=== PATIENT | female | born 1955 | race Caucasian/White ===

== ENCOUNTER 2020-05-22 08:42 | Inpatient (IN) | payer BC, MEDICARE ==
[2020-05-22] MEDS ORDERED: Albuterol Sulfate 2.5 mg/3 ml Neb ONE (08:49)
[2020-05-22] MEDS ORDERED: Albuterol Sulfate 2.5 mg/0.5 ml Neb ONE (08:49)
[2020-05-22] MEDS ORDERED: Ketamine 50 MG/ML (10ML VIAL) ONE (08:57)
[2020-05-22] MEDS ORDERED: Aspirin 81 mg Enteric Coated Tablet ONE (08:57)
[2020-05-22] MEDS ORDERED: Lorazepam 2 MG/ML VIAL ONE (08:57)
[2020-05-22] MEDS ORDERED: Dexamethasone 10 MG/ML VIAL ONE (08:57)
[2020-05-22] MEDS ORDERED: Magnesium 2 GM/50 ML BAG (IN WATER) ONE (08:57)
[2020-05-22 09:17] LABS: Actual Bicarbonate (HCO3v) 21 mEq/L (22-28); Analyzer IN Cardio ER; Base Excess -5.4 mEq/L (-2.0 to +3.0); Calcium, Ionized (venous) 1.21 mmol/L (1.16-1.32); Chloride (VBG) 108 mmol/L (98-106); Hemoglobin (Hb) 10.7 g/dL (11.7-16.0); Potassium (VBG) 3.93 mmol/L (3.70-5.30); Sodium 139.9 mmol/L (133-146); pH (venous) 7.28 (7.32-7.43)
[2020-05-22 09:42] LABS: #Basophils 0.1 thou/uL (0.0-0.2); #Eosinphils 0.1 thou/uL (0.0-0.7); #Lymphocytes 1.7 thou/uL (1.20-3.40); #Monocytes 0.9 thou/uL (0.11-0.59); #Neutrophils 13.2 thou/uL (1.40-6.50); %Basophils 0.4 % (0.0-1.0); %Eosinophils 0.6 % (0.0-10.0); %Lymphocytes 10.8 % (21.0-51.0); %Monocytes 5.8 % (0.0-10.0); %Neutrophils 82.4 % (42.0-75.0); Hemoglobin 9.8 g/dL (12.0-16.0); Mean Corpuscular HGB CONC 30.4 g/dL (32.0-36.0); Mean Corpuscular Hemoglobin 24.6 pg (27.0-31.0); Mean Corpuscular Volume 81.1 fL (78.0-98.0); Mean Platelet Volume 8.1 fL (7.4-10.4); Platelet Count 362 thou/uL (130-400); RBC Distribution Width 18.5 % (11.5-14.5); Red Blood Cell (RBC) Count 3.97 mill/uL (4.20-5.40)
--- NOTE | 2020-05-22 09:46 | RAD ---
Exam: Chest one view HISTORY:Dyspnea Comparison: None FINDINGS: Cardiac silhouette: Normal Aorta: Unremarkable Pulmonary vessels: Normal Costophrenic angles: Clear LUNGS: Multifocal interstitial and alveolar opacities Pneumothorax: None Osseous abnormalities: None IMPRESSION: Multifocal interstitial and alveolar opacities.
[2020-05-22 10:05] LABS: ALT (SGPT) Less than 7 U/L (8-55); AST (SGOT) 18 U/L (5-34); Albumin 2.8 g/dL (3.4-4.8); Alkaline Phosphatase 52 U/L (40-110); Anion Gap 18 mmol/L (10-20); BUN (Urea Nitrogen) 8 mg/dL (9.8-20.1); Bilirubin, Total 0.5 mg/dL (0.2-1.2); CK (CPK) 19 U/L (29-168); Calc. Creatinine Clearance 0 mL/min (70-130); Calcium 8.3 mg/dL (7.8-10.44); Carbon Dioxide 19 mmol/L (23-31); Chloride 107 mmol/L (98-107); Globulin 3.4 g/dL (2.4-3.5); Glucose 236 mg/dL (80-115); Lipase 17 U/L (8-78); Potassium 3.8 mmol/L (3.5-5.1); Protein, Total 6.2 g/dL (5.8-8.1); Sodium 140 mmol/L (136-145)
[2020-05-22 10:51] LABS: Analyzer IN Cardio ER; Base Excess (BEa) -3.3 mEq/L (-2.0 to +3.0); CO2 Tension 34.4 mmHg (35.0-45.0); Calcium, Ionized (arterial) 1.17 mmol/L (1.12-1.30); Carboxyhemoglobin (COHb) 0.2 gm% (0.0-3.0); Hemoglobin (Hb) 9.6 g/dL (12.0-16.0); O2 Tension (PaO2), arterial 116.2 mmHg (> 80.0); Puncture Site LRA
--- NOTE | 2020-05-22 10:56 | CT ---
CT ANGIOGRAM THORAX WITH IV CONTRAST AND 3-D RECONSTRUCTIONS CLINICAL INDICATION: Sudden onset of shortness of breath. History of Covid pneumonia. COMPARISON: None FINDINGS: Pulmonary arteries: No filling defects are seen within the pulmonary arteries to suggest a pulmonary embolus. Aorta: Vascular calcifications are present in the thoracic aorta as well as in the coronary arteries. The thoracic aorta is normal in caliber without evidence of an aortic dissection. Lungs: There is motion present on provided images. There are linear irregular parenchymal densities s een throughout the lungs bilaterally with scattered areas of groundglass opacity likely sequela of prior Covid pneumonia with linear densities likely related to chronic interstitial lung changes. No c onsolidation or pleural fluid is seen. Mediastinum: The heart is enlarged. No enlarged mediastinal lymph nodes are seen. Thyroid gland: Not well assessed on this exam. Osseous structures: No suspicious lytic or sclerotic osseous lesion. Chest wall: No abnormality visualized. Upper abdomen: Gallbladder is incompletely imaged, but calcifications are seen in the gallbladder lum en compatible with cholelithiasis. Small hiatal hernia is present. IMPRESSION: 1. Findings likely related to sequela of Covid pneumonia with chronic interstitial lung changes and s cattered mild groundglass densities. 2. No CT evidence for pulmonary embolus. 3. Mild cardiomegaly. 4. Cholelithiasis. 5. Small hiatal hernia.
[2020-05-22 10:59] LABS: SARS-CoV-2 NAA Rapid Test DETECTED (NotDetected)
[2020-05-22] MEDS ORDERED: Iopamidol-370 76% 500 ML 1 ML ONE (11:12)
[2020-05-22] MEDS ORDERED: Cefepime 2 GM VIAL ONE (11:12)
[2020-05-22] MEDS ORDERED: VANCOMYCIN 2 GRAM/400 ML BAG 2 GM in Premix Bag 1 BAG IVPB SCH (11:30)
--- NOTE | 2020-05-22 11:40 | PDOC.HHP ---
Hospitalist HPI Respiratory distress History of Present Illness: The patient is a 64-year-old female with past medical history of renal failure status post transplantation currently on prednisone and Prograf, diabetes mellitus, recent Covid pneumonia and pulmonary embolism. The patient was admitted to [facility] in [place] on April 09 for Covid pneumonia. She was intubated for 2 weeks and then a tracheostomy( NOT CURRENTLY ACTIVE) was placed. The patient ultimately improved and was sent to LTAC where she was managed until yesterday. After discharge, the patient did well for the first 24 hours and then became significantly short of breath last night. She presented to the ER in a state of respiratory distress requiring BiPAP. The patient is unable to provide much history at this time and most of the history was obtained from her family. Allergies/Adverse Reactions: Allergy/AdvReac Type Severity Reaction Status Date / Time hydrochlorothiazide Allergy Verified 05/22/20 11: Penicillins Allergy Verified 05/22/20 11: Past History: PMHx: As noted above PSHx: Right kidney transplant in October 2019, tracheostomy, hysterectomy FHx: Noncontributory to current presentation Social: No history of alcohol use, drug use, or smoking. She lives at home with her family. Hospitalist Exam General Appearance: awake alert, ill appearing ENT: normocephalic atraumatic Neck: supple Heart: RRR Respiratory: rhonchi, tachypneic Gastrointestinal: soft Extremities: no cyanosis, no clubbing Neurological: cranial nerve grossly intact Hospitalist Results Result Diagrams: 05/22/20 09:01 05/22/20 09:01 Lab results: Laboratory Last Values WBC 16.0 thou/uL (4.8-10.8) H 05/22/20 09: RBC 3.97 mill/uL (4.20-5.40) L 05/22/20 09: Hgb 9.8 g/dL (12.0-16.0) L 05/22/20 09: Hct 32.2 % (36.0-47.0) L 05/22/20 09: MCV 81.1 fL (78.0-98.0) 05/22/20 09: MCH 24.6 pg (27.0-31.0) L 05/22/20 09: MCHC 30.4 g/dL (32.0-36.0) L 05/22/20 09:01 RDW 18.5 % (11.5-14.5) H 05/22/20 09:01 Plt Count 362 thou/uL (130-400) 05/22/20 09:01 MPV 8.1 fL (7.4-10.4) 05/22/20 09:01 Neutrophils % 82.4 % (42.0-75.0) H 05/22/20 09:01 Lymphocytes % 10.8 % (21.0-51.0) L 05/22/20 09:01 Monocytes % 5.8 % (0.0-10.0) 05/22/20 09:01 Eosinophils % 0.6 % (0.0-10.0) 05/22/20 09:01 Basophils % 0.4 % (0.0-1.0) 05/22/20 09:01 Neutrophils # 13.2 thou/uL (1.40-6.50) H 05/22/20 09:01 Lymphocytes # 1.7 thou/uL (1.20-3.40) 05/22/20 09:01 Monocytes # 0.9 thou/uL (0.11-0.59) H 05/22/20 09:01 Eosinophils # 0.1 thou/uL (0.0-0.7) 05/22/20 09:01 Basophils # 0.1 thou/uL (0.0-0.2) 05/22/20 09:01 D-Dimer 1.70 *mcg/mL (0.27-0.43) H 05/22/20 09:01 Specimen Type ARTERIAL 05/22/20 10:45 Puncture Site LRA 05/22/20 10:45 Bicarbonate Actual 21.0 mEq/L (22-28) L 05/22/20 10:45 ABG pH 7.40 (7.35-7.45) 05/22/20 10:45 ABG pCO2 34.4 mmHg (35.0-45.0) L 05/22/20 10:45 ABG pO2 116.2 mmHg (> 80.0) H 05/22/20 10:45 ABG O2 Sat (Measured) 98.0 % (94.0-98.0) 05/22/20 10:45 ABG O2 Content 13.3 vol% (18.0-21.0) L 05/22/20 10:45 ABG Base Excess -3.3 mEq/L (-2.0 to +3.0) L 05/22/20 10:45 ABG Hematocrit 28.0 % (36.0-47.0) L 05/22/20 10:45 ABG Hemoglobin 9.6 g/dL (12.0-16.0) L 05/22/20 10:45 ABG Oxyhemoglobin 96.9 % (94.0-98.0) 05/22/20 10:45 ABG Carboxyhemoglobin 0.2 gm% (0.0-3.0) 05/22/20 10:45 ABG Methemoglobin 0.90 gm% (0.04-1.52) 05/22/20 10:45 ABG Deoxyhemoglobin 2.0 % (0.0-2.9) 05/22/20 10:45 Marquis Test Not Reportable 05/22/20 10:45 VBG pH 7.28 (7.32-7.43) L 05/22/20 09:00 VBG pCO2 45.9 mmHg (42.0-51.0) 05/22/20 09:00 VBG pO2 27.3 mmHg (35.0-45.0) L 05/22/20 09:00 VBG HCO3 21 mEq/L (22-28) L 05/22/20 09:00 VBG O2 Sat ([place]) 40.6 % (60-85) L 05/22/20 09:00 VBG Base Excess -5.4 mEq/L (-2.0 to +3.0) L 05/22/20 09:00 VBG Hematocrit 31.0 % (36.0-47.0) L 05/22/20 09:00 VBG Hemoglobin 10.7 g/dL (11.7-16.0) L 05/22/20 09:00 VBG Carboxyhemoglobin 0.1 gm% (0.5-1.5) L 05/22/20 09:00 VBG Methemoglobin 0.8 % (0-1.5) 05/22/20 09:00 VBG Ionized Calcium 1.21 mmol/L (1.16-1.32) 05/22/20 09:00 A-a O2 Gradient 54.700 mmHg (0-20) H 05/22/20 10:45 Sodium 136 mmol/L (135-148) 05/22/20 10:45 Potassium 3.50 mmol/L (3.70-5.30) L 05/22/20 10:45 Chloride 109 mmol/L (98-106) H 05/22/20 10:45 Ionized Calcium 1.17 mmol/L (1.12-1.30) 05/22/20 10:45 Mode of Support BIPAP 05/22/20 10:45 Inspired O2 30 % 05/22/20 10:45 Pressure Support 14 cmH2O 05/22/20 10:45 PEEP or CPAP 6.0 cmH2O 05/22/20 10:45 Sodium 140 mmol/L (136-145) 05/22/20 09:01 Whole Bld Sodium 139.9 mmol/L (133-146) 05/22/20 09:00 Potassium 3.8 mmol/L (3.5-5.1) 05/22/20 09:01 Whole Bld Potassium 3.93 mmol/L (3.70-5.30) 05/22/20 09:00 Chloride 107 mmol/L (98-107) 05/22/20 09:01 Whole Bld Chloride 108 mmol/L (98-106) H 05/22/20 09:00 Carbon Dioxide 19 mmol/L (23-31) L 05/22/20 09:01 Anion Gap 18 mmol/L (10-20) 05/22/20 09:01 BUN 8 mg/dL (9.8-20.1) L 05/22/20 09:01 Creatinine 0.97 mg/dL (0.6-1.1) 05/22/20 09:01 Estimated GFR (MDRD) 58 05/22/20 09:01 Glucose 236 mg/dL (80-115) H 05/22/20 09:01 Lactic Acid 4.6 mmol/L (0.5-2.2) H* 05/22/20 09:01 Calcium 8.3 mg/dL (7.8-10.44) 05/22/20 09:01 Total Bilirubin 0.5 mg/dL (0.2-1.2) 05/22/20 09:01 AST 18 U/L (5-34) 05/22/20 09:01 ALT Less than 7 U/L (8-55) L 05/22/20 09:01 Alkaline Phosphatase 52 U/L (40-110) 05/22/20 09:01 Creatine Kinase 19 U/L (29-168) L 05/22/20 09:01 CK-MB (CK-2) 1.0 ng/mL (0-6.6) 05/22/20 09:01 Troponin I 0.029 ng/mL (< 0.028) H 05/22/20 09:01 B-Natriuretic Peptide 191.9 pg/mL (0-100) H 05/22/20 09:01 Serum Total Protein 6.2 g/dL (5.8-8.1) 05/22/20 09:01 Albumin 2.8 g/dL (3.4-4.8) L 05/22/20 09:01 Globulin 3.4 g/dL (2.4-3.5) 05/22/20 09:01 Albumin/Globulin Ratio 0.8 g/dL (1.2-2.2) L 05/22/20 09:01 Lipase 17 U/L (8-78) 05/22/20 09:01 Influenza A RNA INAAT Not Detected (NotDetected) 05/22/20 10:06 Influenza B RNA INAAT Not Detected (NotDetected) 05/22/20 10:06 SARS-CoV-2 Rap RNA(RT-PCR) DETECTED (NotDetected) A* 05/22/20 10:06 Hospitalist H&P A/P (1) Acute and chronic respiratory failure Code(s): J96.20 - ACUTE AND CHR RESP FAILURE, UNSP W HYPOXIA OR HYPERCAPNIA Status: Acute Assessment and Plan: The patient is currently requiring BiPAP. We will wean her off to high flow nasal cannula as tolerated. (2) COVID-19 Code(s): U07.1 - COVID-19 Status: Acute Assessment and Plan: History of COVID-19 infection in early April. The patient is likely no longer infectious and no isolation will be implemented. Her respiratory with hypoxia likely a sequelae of lung scarring due to history of severe COVID-19 infection. Dose changes were noted in her CT scan of the chest today. I have discussed her case with pulmonology. (3) Sepsis Code(s): A41.9 - SEPSIS, UNSPECIFIED ORGANISM Status: Acute Assessment and Plan: Possibility of superimposed bacterial infection is not ruled out. Broad-spectrum antibiotics have been initiated. The patient received fluid bolus in the ER. Follow blood culture results. Check procalcitonin and inflammatory markers. (4) History of renal transplant Status: Acute Assessment and Plan: Continue Prograf and prednisone. Nephrology consulted. (5) History of pulmonary embolism Code(s): Z86.711 - PERSONAL HISTORY OF PULMONARY EMBOLISM Status: Acute Assessment and Plan: Continue her home Eliquis. (6) DM2 (diabetes mellitus, type 2) Status: Acute Assessment and Plan: Insulin sliding scale. (7) Cardiomegaly Code(s): I51.7 - CARDIOMEGALY Status: Acute Assessment and Plan: There is mild cardiomegaly on chest x-ray. BNP is slightly elevated but could be much higher given the false-negative results in obese patients. Check echocardiogram. Start Lasix 20 mg IV twice daily. Plan: The ER contacted the patient's transplant center for transfer. They stated that the patient is stable to stay here. Her transplant doctor will be available over the phone for assistance. His name is Dr. Santos and phone number .
[2020-05-22 12:59] LABS: Lactic Acid 2.2 mmol/L (0.5-2.2)
--- NOTE | 2020-05-22 15:13 | CON ---
DATE OF CONSULTATION: 05/22/2020 HISTORY OF PRESENT ILLNESS: This is a 64-year-old female, who was admitted to [facility] around April 03 with COVID-19 pneumonia. Her and her both became ill at the same time. The patient proceeded to develop acute respiratory failure and was on mechanical ventilation for 2 weeks before she underwent tracheostomy. She was weaned from the ventilator within 5 days of that and spent another several days in the hospital there before being transferred to [facility] in [place]. There, she was decannulated. She underwent rehab. She was only able to ambulate about 180 steps at the time of discharge. Although she felt okay to go home, she was never walked to assess her potential for oxygen desaturation. Therefore, she went home with no oxygen. PAST MEDICAL HISTORY: 1. She recently underwent orthotopic kidney transplantation. This has been complicated by nephrolithiasis in the donated kidney. She eventually had to have transplantation of her [place] ureter to this kidney and has been doing well since that time. 2. Chronic secondary to transplant. PAST SURGICAL HISTORY: Tracheostomy, hysterectomy, and kidney transplant. SOCIAL HISTORY: Nonsmoker. Does not consume alcohol. Does not use illicit drugs. ALLERGIES: PENICILLIN AND HYDROCHLOROTHIAZIDE. REVIEW OF SYSTEMS: Remarkable for dry cough, chills. No fever, nausea, vomiting, hematemesis, melena, hematochezia, hematuria, or dysuria. PHYSICAL EXAMINATION: VITAL SIGNS: O2 saturations running around 100% on BiPAP at 30% FiO2. I subsequently took her off the BiPAP, put on 2 L, and she was saturating 99%. Her pulse is running in the 80s, blood pressure 170/60. GENERAL: She is awake, alert. She has some mild dyspnea at rest, but is able to speak without difficulty. HEENT: Unremarkable. NECK: She has an old tracheostomy site, which is almost closed except for a pinhole air movement. LUNGS: She has some inspiratory crackles bilaterally. CARDIOVASCULAR: S1 and S2, regular without murmur. ABDOMEN: Obese, soft, nontender, and nondistended. EXTREMITIES: No clubbing or cyanosis, but she has generalized mild edema throughout. LABORATORY DATA: White blood cell count 16, hematocrit 32.2, and platelet count 362, sedimentation rate 27. D-dimer 1.7. PH 7.4, pCO2 of 34, pO2 of 116 on the BiPAP with FiO2 of 30%. Lactate is at 4.6. Sodium 140, potassium 3.8, chloride 107, CO2 of 19, BUN 8, creatinine 0.8, glucose 236, AST 18, ALT less than 7. BNP 191. Procalcitonin 0.1. I reviewed her CT, she has chronic interstitial changes in the periphery bilaterally. ASSESSMENT: Ms. Jewell presents with hypoxemia and respiratory distress after being sent home yesterday from an LTAC. She has recent COVID pneumonia with a very stormy course and has residual changes on her CT scan indicative of fibrotic component after COVID pneumonia. If I had my guess, I would say that she probably desaturates with severe exercise, but was probably never able to perform robust enough exercise to desaturate to the extent where she will qualify for home oxygen. However, I am not confident that testing was performed. I do not think that she has active COVID pneumonia at this time. I do not think that she is contagious from this standpoint. Given the fact that she is immunocompromised, she could have developed some type of secondary infection, although this is not reflected in her procalcitonin or sedimentation rate. That being said, I am not confident that the procalcitonin or sedimentation rate would have that much value in the patient who is immunocompromised who she was taking steroids. RECOMMENDATIONS: 1. The patient should have a phone call placed to [facility] in [place] to see if they would be willing to take her back. Most transplant centers want to be involved in every aspect of the patient's care in the first 2 years after transplantation. 2. If she has to stay here, then I would monitor for a few days. I will keep her on antibiotics until cultures have had a chance to result. I would not necessarily go up on any of her steroid dose. She does have a history of pulmonary embolism while in the hospital, but nothing currently on CT scan, so I would keep her on her current Eliquis dose. If she has to stay here, I would consult Nephrology to make sure that she is on appropriate anti-rejection medication. 3. If she does stay here, then I would try to perform exercise O2 sats to see if she will qualify for home oxygen. If she did not qualify, then I would probably try to find some way to send her home on oxygen temporarily. Thank you for the consultation. Job ID: [id number]
[2020-05-22 16:01] LABS: Troponin I 0.038 ng/mL (< 0.028)
[2020-05-22 16:02] LABS: Bilirubin Negative (Negative); Blood, Urine Negative (Negative); Glucose, Urine (Dipstick) 100 mg/dL (Negative); Ketone, Urine Negative (Negative); Leukocyte Negative (Negative); Nitrite Negative (Negative); Protein, Urine (Dipstick) Negative (Neg-Trace); Specific Gravity, Urine 1.015 (1.005-1.030); Urobilinogen 0.2 mg/dL (Less than 2); pH, Urine 6.5 (5.0-9.0)
[2020-05-22 16:03] LABS: Clarity Cloudy (Clear)
[2020-05-22 19:21] VITALS: BMI 34.8
[2020-05-22] MEDS: Apixaban 5 MG TAB PO SCH (20:22)
[2020-05-22] MEDS: Tacrolimus 1 MG CAP PO SCH (20:22)
[2020-05-22] MEDS: Furosemide 20 MG/2 ML VIAL SLOW IVP SCH (20:24)
[2020-05-22] MEDS: Vancomycin 1 GM in Premix Bag 1 BAG IVPB SCH (20:25)
[2020-05-22] MEDS: Cefepime 1 GM in Sodium Chloride 0.9% 100 ML IVPB SCH (22:38)
[2020-05-23] MEDS: Tacrolimus 1 MG CAP PO SCH ×2 (08:41→21:24)
[2020-05-23] MEDS: Apixaban 5 MG TAB PO SCH ×2 (08:41→21:30)
[2020-05-23] MEDS: predniSONE 20 MG TAB PO SCH (08:41)
[2020-05-23] MEDS: Amlodipine 10 MG TAB PO SCH ×2 (08:41→09:28)
[2020-05-23] MEDS: Vancomycin 1 GM in Premix Bag 1 BAG IVPB SCH ×2 (08:42→21:23)
[2020-05-23] MEDS: Furosemide 20 MG/2 ML VIAL SLOW IVP SCH (08:42)
[2020-05-23] MEDS ORDERED: Prevnar 13-Val Conj/PF 0.5 ML SYRINGE IM ONE (09:00)
[2020-05-23 09:39] LABS: White Blood Cell (WBC) Count 17.3 thou/uL (4.8-10.8)
[2020-05-23 09:53] LABS: Albumin 2.9 g/dL (3.4-4.8); Anion Gap 13 mmol/L (10-20); BUN (Urea Nitrogen) 13 mg/dL (9.8-20.1); BUN/Creatinine Ratio 14.44; Calc. Creatinine Clearance 89 mL/min (70-130); Calcium 8.5 mg/dL (7.8-10.44); Carbon Dioxide 22 mmol/L (23-31); Chloride 109 mmol/L (98-107); Glucose 151 mg/dL (80-115); Magnesium 1.5 mg/dL (1.6-2.6); Phosphorus 3.8 mg/dL (2.3-4.7); Potassium 4.4 mmol/L (3.5-5.1); Sodium 140 mmol/L (136-145)
[2020-05-23] MEDS ORDERED: Magnesium 2 GM/50 ML 2 GM in Premix Bag 1 BAG IVPB SCH (10:00)
--- NOTE | 2020-05-23 11:17 | CON ---
DATE OF CONSULTATION: 05/23/2020 SERVICE: Nephrology. REASON FOR CONSULTATION: Renal transplant management. REQUESTING PHYSICIAN: Dr. Asuncion Smith. HISTORY OF PRESENT ILLNESS: A 64-year-old female with known history of end- stage renal disease, status post living donor renal transplant in 2019, being managed by Dr Samantha Alegre at [facility], admitted due to acute onset of respiratory distress and hypoxia. The patient reportedly was diagnosed and treated for COVID pneumonia between March and April, requiring intubation and was subsequently transferred to [facility] after tracheostomy and PEG tube placement. The patient improved and tracheostomy was decannulated and she was subsequently discharged on May 21, on room air. She only stayed at home for one day, but developed worsening shortness of breath, hence was brought in by EMS. There was no associated fever, chills, rigor, or dysuria. The patient however reported nasal congestion. She also denied leg swelling or cough or abdominal pain. On presentation, the patient was in respiratory distress requiring non- rebreather oxygen supplementation with some improvement. She is currently on nasal cannula oxygen supplementation. For her immunosuppression, the patient is on Prograf 2 mg b.i.d. and prednisone. She also is on Bactrim for PCP prophylaxis. She was also started on broad-spectrum antibiotics with vancomycin and Zosyn. Review of patient's portal revealed that the patient had a creatinine of 0.91 on May 10, on same day, she also had a Prograf level of 4.4. She denied use of NSAID or nephrotoxic agent. PAST MEDICAL HISTORY: 1. End-stage renal disease, status post renal transplant. 2. PE on anticoagulation 3. Nephrolithiasis of transplnted kidney PAST SURGICAL HISTORY: 1. Tracheostomy. 2. Hysterectomy. 3. Kidney transplant. FAMILY HISTORY: Reviewed, but noncontributory. SOCIAL HISTORY: Nonsmoker. Denied alcohol or recreational drug use. ALLERGIES: REPORTED ALLERGIC AND ADVERSE REACTION TO PENICILLIN AND HYDROCHLOROTHIAZIDE. MEDICATIONS: Prior to hospital, medications are as follows; 1. Eliquis 5 mg p.o. b.i.d. 2. Prednisone 10 mg p.o. daily. 3. Tacrolimus 2 mg p.o. b.i.d. 4. Protonix 40 mg p.o. daily. 5. Bactrim single-strength one tablet p.o. b.i.d. 6. Tradjenta 5 mg p.o. daily. Current hospital medications are as follows; 1. Cefepime 1 g b.i.d. 2. Vancomycin 1 g b.i.d. 3. Amlodipine 10 mg p.o. daily. 4. Eliquis 5 mg p.o. b.i.d. 5. Lasix 20 mg IV b.i.d. 6. Prednisone 10 mg p.o. daily. 7. Prograf 2 mg p.o. b.i.d. REVIEW OF SYSTEMS: Twelve-point review of system performed was negative other than pertinent positives and negatives included in the history of present illness. PHYSICAL EXAMINATION: VITAL SIGNS: Temperature 97.9, pulse 97, respiratory rate 20, SpO2 100 on 3 L nasal cannula, blood pressure is 137/79. GENERAL: Anxious, obese female, in no obvious distress. Afebrile. Anicteric. Acyanotic. HEENT: Normocephalic, atraumatic. Oral mucosa is moist. NECK: Supple with no JVD. CARDIOVASCULAR: Regular rhythm and rate with normal heart sounds 1 and 2. RESPIRATORY: Fair air entry bilaterally with few transmitted breath sounds. No rhonchi or use of accessory muscles was appreciated. GASTROINTESTINAL: Abdomen is obese. Scars of prior surgery noted. Right lower quadrant transplanted kidney noted with no tenderness. EXTREMITIES: Grossly normal looking atraumatic with no edema or erythema. SKIN: Normal skin turgor. No rash or ecchymosis appreciated. INFORMATION SERVICES CONSULTANT: Conscious and alert, oriented x3 with appropriate mental status. Cranial nerves II through XII are grossly intact. The patient moves all extremities. PSYCHIATRIC: The patient seems anxious with some fine tremor. DIAGNOSTIC DATA: CBC on presentation yesterday showed WBC count of 16.0, hemoglobin of 9.8, MCV of 81, platelets of 362. CBC today is still pending. Chemistry earlier today showed sodium 140, potassium 4.4, chloride 109, CO2 22, BUN 13, creatinine 0.9, glucose 151, calcium 8.5, phosphorus 3.8, magnesium 1.5, albumin 2.9. On presentation yesterday, sodium was 140, potassium 3.8, chloride 107, CO2 19, BUN 8, creatinine 0.97, albumin 2.8. Urinalysis on presentation showed yellow cloudy urine with pH of 6.5, specific gravity of 1.015, urine protein positive, negative ketone, blood, nitrite, bilirubin, and leukocyte esterase. Microscopy was not done. COVID PCR was positive. CT angio of the chest showed findings related to sequelae of COVID pneumonia with chronic interstitial lung changes and scattered mild ground-glass densities. No CT evidence of pulmonary embolus noted. Mild cardiomegaly and cholelithiasis also were noted. Echocardiogram performed on presentation showed preserved systolic function with EF of 55-60, mild concentric left ventricular hypertrophy and E/A flow reversal suggestive of diastolic dysfunction also were noted. ASSESSMENT: 1. Acute respiratory failure with hypoxia: Most likely due to physical deconditioning, superimposed on sequelae of COVID. New COVID infection/reinfection is a concern. Normal procalcitonin makes bacterial infection unlikely. Some congestion may be contributory, though the patient appeared clinically dry. She is clinically improved and is on nasal cannula. One wonders if the patient should have been on oxygen on discharge. 2. Status post renal transplant. Renal function is stable with creatinine of 0.9, which is at her baseline. The patient had creatinine of 0.91 on May 10. Immunosuppression with Prograf and prednisone. No change in prednisone and there is no medication that could alter or interrupt with current and immunosuppressants. 3. Elevated blood pressure. On presentation, blood pressures were in 110s, but creeped up to 150s. The patient is not a known hypertensive. 4. Diabetes on Tradjenta. 5. COVID infection/pneumonia with possible reinfection given positive COVID PCR. 6. Hypomagnesemia PLAN: 1. We will continue current immunosuppressive therapy with Prograf and prednisone. We will also continue Bactrim for PCP prophylaxis. 2. We will discontinue amlodipine for now as blood pressure is fairly acceptable. We will also discontinue Lasix at this point as the patient is euvolemic if not dry. We defer antibiotic therapy to the primary, attending and cinnamon grinder. We will monitor renal function closely. We will plan to get FK level at some point. We will also replete serum magnesium with 2 grms of magnesium sulphate 3. If the patient remained stable, it will be appropriate to consider home oxygen. Otherwise, transfer to [facility], will be prudent. We will continue to follow patient at this point. I will get in contact with Dr. Codey and update her on the patient. I understand the patient was given the option of transfer yesterday, but she preferred to stay here to stay closer to the family. Job ID: [id number] [id number]
[2020-05-23] MEDS: Cefepime 1 GM in Sodium Chloride 0.9% 100 ML IVPB SCH ×2 (11:20→22:56)
[2020-05-23 11:28] LABS: Hemoglobin 8.6 g/dL (12.0-16.0); Mean Corpuscular HGB CONC 30.8 g/dL (32.0-36.0); Mean Corpuscular Hemoglobin 24.7 pg (27.0-31.0); Mean Corpuscular Volume 80.2 fL (78.0-98.0); Mean Platelet Volume 8.4 fL (7.4-10.4); Platelet Count 320 thou/uL (130-400); Red Blood Cell (RBC) Count 3.47 mill/uL (4.20-5.40)
--- NOTE | 2020-05-23 11:28 | PDOC.HOSPP ---
- Subjective Encounter Date: 05/23/20 (f/u acute resp failure) Encounter Time: 11:26 Subjective: Pt was admitted yesterday with acute resp failure with hypoxia. She has a hx of complicated covid infection that required tracheostomy, now decanulated, and rehab. She was recently discharged and returned to the hospital with acute shortness of breath. Pt reports her breathing is better today - she notes improvement compared to yesterday. She states she did not require oxygen at rehab or afterwards. She denies any cp/sob/n/v/abd pain. She is concerned about her medications - reports she takes protonix at 1600 daily. She has nasal congestion and therefore difficulty breathing through her nose. - Objective Vital Signs & Weight: Vital Signs (12 hours) Temp Pulse Resp BP Pulse Ox 05/23/20 08:00 97.9 F 94 18 146/84 H 100 05/23/20 06:00 97 20 137/79 100 05/23/20 04:04 93 L 05/23/20 03:52 97.5 F L 98 22 H 155/90 H 100 05/23/20 02:00 93 148/76 H 100 05/23/20 00:00 98.1 F 97 22 H 131/71 98 Weight Weight 193 lb 8 oz I&O: 05/22/20 05/23/20 05/24/20 06:59 06:59 06:59 Intake Total 237 Balance 237 Result Diagrams: 05/23/20 09:09 05/23/20 09:09 EKG Reviewed by me: Yes (tele - sinus 90-100's, 8 beats pAT) Hospitalist ROS - Medication Medications: Active Medications Generic Name Dose Route Start Last Admin Trade Name Freq PRN Reason Stop Dose Admin Apixaban 5 mg 05/22/20 21:00 05/23/20 08:41 Apixaban 5 Mg Tab PO 5 mg BID REYNALDO Administration Cefepime HCl 1 gm/ Sodium 100 mls @ 200 mls/hr 05/22/20 23:00 05/23/20 11:20 Chloride IVPB 100 mls 1100,2300 REYNALDO Administration Vancomycin HCl 1 gm/ Device 200 mls @ 200 mls/hr 05/22/20 21:00 05/23/20 08:42 IVPB 200 mls Q12HR REYNALDO Administration Magnesium Sulfate 2 gm/ Device 50 mls @ 50 mls/hr 05/23/20 10:00 05/23/20 11:21 IVPB 05/23/20 14:00 50 mls NOW REYNALDO Administration Prednisone 10 mg 05/23/20 08:00 05/23/20 08:41 Prednisone 20 Mg Tab PO 10 mg QAM-WM REYNALDO Administration Sodium Chloride 10 ml 05/22/20 21:00 05/23/20 11:22 Flush - Normal Saline 10 Ml Syringe IVF 10 ml Q12HR REYNALDO Administration Tacrolimus 2 mg 05/22/20 21:00 05/23/20 08:41 Tacrolimus 1 Mg Cap PO 2 mg BID REYNALDO Administration Hospitalist Exam Vitals: Vital Signs (12 hours) Temp Pulse Resp BP Pulse Ox 05/23/20 08:00 97.9 F 94 18 146/84 H 100 05/23/20 06:00 97 20 137/79 100 05/23/20 04:04 93 L 05/23/20 03:52 97.5 F L 98 22 H 155/90 H 100 05/23/20 02:00 93 148/76 H 100 05/23/20 00:00 98.1 F 97 22 H 131/71 98 Weight Weight 193 lb 8 oz General Appearance: NAD Heart: RRR, no murmur Respiratory: no wheezes, no rales, no ronchi Respiratory - other findings: fair air movement throughout Gastrointestinal: soft, non-tender, non-distended, normal bowel sounds Extremities: no cyanosis, no clubbing, no edema Psychiatric: normal affect Psychiatric - other findings: tearful in conversation about wanting to be home Hosp A/P (1) Acute and chronic respiratory failure Code(s): J96.20 - ACUTE AND CHR RESP FAILURE, UNSP W HYPOXIA OR HYPERCAPNIA Status: Acute Qualifiers: Respiratory failure complication: hypoxia Qualified Code(s): J96.21 - Acute and chronic respiratory failure with hypoxia (2) COVID-19 Code(s): U07.1 - COVID-19 Status: Chronic (3) History of renal transplant Status: Acute (4) Hypomagnesemia Code(s): E83.42 - HYPOMAGNESEMIA Status: Acute (5) Hypoalbuminemia Code(s): E88.09 - OTH DISORDERS OF PLASMA-PROTEIN METABOLISM, NEC Status: Acute (6) DM2 (diabetes mellitus, type 2) Status: Acute - Plan Acute resp failure with hx of complicated covid infection and lung changes c/w sequelae of covid infection - appreciate Pulm recs - continue Cefepime and Vanc for now - follow cultures - case management consult in anticipation that pt may need home oxygen and may be ready for d/c tomorrow Hx of renal transplant - continue current meds - hold bactrim for now given broad spectrum abx Nasal congestion - oxymetolazone bid x 6 doses - start flonase GERD - protonix with home dosing hx of c diff - start florastor DM - continue home tradjenta - this hospital substitutes alogliptin dvt prophy - eliquis gi prophy - home protonix code status full reviewed plan of care with patient/nurse, no questions or further needs at end of eval Addendum 20:05- contacted by RN earlier this afternoon for positive blood culture - MRSE. Will consult ID in the morning given the immunosuppression meds with transplant.
[2020-05-23 11:31] LABS: Anisocytosis SLIGHT = 6-15 cells (100X) (0-5/hpf); Band 1 % (5-11); Hypochromia SLIGHT = 6-15 cells (100X) (0-5/hpf); MDiff Complete? YES; Monocytes 4 % (0-10); Neutrophil 95 % (42-75); Platelet Morphology Comment Appears Adequate; Polychromasia SLIGHT = 2-3 cells (100X) (0-2/hpf); Vacuoles SLIGHT
[2020-05-23] MEDS ORDERED: Fluticasone Propionate Nasal Spray 16 gm Bottle NASAL SCH (12:00)
[2020-05-23] MEDS ORDERED: Oxymetazoline HCl 0.05% (30 ML BOT) NS SCH (12:00)
[2020-05-23] MEDS ORDERED: Dextrose 50% Abboject 50 ML SYRINGE SLOW IVP PRN (13:58)
[2020-05-23] MEDS ORDERED: HumaLOG 300 UNITS/3 ML VIAL SC PRN ×2 (13:58)
[2020-05-23] MEDS ORDERED: Dextrose 5% in Water 1,000 ML IV PRN (13:58)
--- NOTE | 2020-05-23 15:56 | PRG ---
DATE OF SERVICE: 05/23/2020 SUBJECTIVE: The patient is in much better spirits today. She had no acute complaints. She is breathing much better with the oxygen. OBJECTIVE: VITAL SIGNS: Her temperature is 98.0, pulse 107, respirations 23, O2 saturations 98% on 3 L, blood pressure 132/82. GENERAL: She is awake and alert, in no distress. HEENT: Unremarkable. NECK: No adenopathy or JVD. CHEST: Clear. CARDIAC: S1, S2. Regular. ABDOMEN: Soft. EXTREMITIES: No edema. LABORATORY DATA: White count 17, hematocrit 27.9, and platelet count 320. Sodium 140, potassium 4.4, chloride 109, CO2 of 22, BUN 13, creatinine 0.9, glucose 151. Her culture, she has grown out gram-positive cocci from a culture obtained from her newly inserted central line. Of note, she did have PICC line discontinued about two days before that. ASSESSMENT: 1. Possible line sepsis. 2. Status post COVID-19 pneumonia with residual findings on CT scan, which are not unexpected. PLAN: I would think she needs to be set up for home oxygen. She needs to continue current antibiotics until we have the sensitivities at the identified bacteria. If this is a true infection, then I would consult with ID in terms of duration of treatment since she is a transplant patient. Job ID: [id number]
[2020-05-23] MEDS: Oxymetazoline HCl 0.05% (30 ML BOT) NS SCH (21:25)
[2020-05-23] MEDS: Fluticasone Propionate Nasal Spray 16 gm Bottle NASAL SCH (21:26)
[2020-05-24 05:08] LABS: #Lymphocytes 0.9 thou/uL (1.20-3.40); #Monocytes 0.9 thou/uL (0.11-0.59); #Neutrophils 10.6 thou/uL (1.40-6.50); %Basophils 0.2 % (0.0-1.0); %Eosinophils 0.1 % (0.0-10.0); %Lymphocytes 6.9 % (21.0-51.0); %Monocytes 7.2 % (0.0-10.0); %Neutrophils 85.6 % (42.0-75.0); Hemoglobin 8.4 g/dL (12.0-16.0); Mean Corpuscular HGB CONC 30.3 g/dL (32.0-36.0); Mean Corpuscular Hemoglobin 24.3 pg (27.0-31.0); Mean Corpuscular Volume 80.3 fL (78.0-98.0); Mean Platelet Volume 8.7 fL (7.4-10.4); Platelet Count 262 thou/uL (130-400); RBC Distribution Width 18.9 % (11.5-14.5); Red Blood Cell (RBC) Count 3.44 mill/uL (4.20-5.40); White Blood Cell (WBC) Count 12.4 thou/uL (4.8-10.8)
[2020-05-24 05:33] LABS: Anion Gap 12 mmol/L (10-20); BUN (Urea Nitrogen) 15 mg/dL (9.8-20.1); Calc. Creatinine Clearance 80 mL/min (70-130); Calcium 8.6 mg/dL (7.8-10.44); Carbon Dioxide 21 mmol/L (23-31); Chloride 108 mmol/L (98-107); Glucose 113 mg/dL (80-115); Magnesium 1.8 mg/dL (1.6-2.6); Potassium 3.9 mmol/L (3.5-5.1); Sodium 137 mmol/L (136-145)
[2020-05-24] MEDS ORDERED: Albuterol Sulfate 2.5 mg/3 ml Neb NEB PRN (07:41)
--- NOTE | 2020-05-24 07:44 | PDOC.HOSPP ---
- Subjective Encounter Date: 05/24/20 (f/u acute resp failure) Encounter Time: 07:42 Subjective: Pt c/o an episode yesterday where she couldn't breathe. States it was all of a sudden when she was talking with someone, it felt like no air was moving. The person she was speaking with increased the oxygen and the pt reports the sx resolved. She denies this during hospitalization with covid or rehab. Yesterday - one blood culture is positive with MRSE. - Objective Vital Signs & Weight: Vital Signs (12 hours) Temp Pulse Resp BP Pulse Ox 05/24/20 04:16 98 05/24/20 03:00 98.3 F 97 16 135/70 98 05/23/20 23:49 98.0 F 92 16 115/78 98 05/23/20 21:21 98.9 F 92 20 131/73 97 05/23/20 20:00 98 Weight Weight 193 lb 8 oz I&O: 05/23/20 05/24/20 05/25/20 06:59 06:59 06:59 Intake Total 237 1700 Output Total 1300 Balance 237 400 Result Diagrams: 05/24/20 04:47 05/24/20 04:47 EKG Reviewed by me: Yes (tele - sinus 80's) Hospitalist ROS - Medication Medications: Active Medications Generic Name Dose Route Start Last Admin Trade Name Freq PRN Reason Stop Dose Admin Apixaban 5 mg 05/22/20 21:00 05/23/20 21:30 Apixaban 5 Mg Tab PO 5 mg BID REYNALDO Administration Fluticasone Propionate 0 gm 05/23/20 21:00 05/23/20 21:26 Fluticasone Propionate Nasal [employer] 16 Gm Bottle NASAL 2 spr BID REYNALDO Administration Cefepime HCl 1 gm/ Sodium 100 mls @ 200 mls/hr 05/22/20 23:00 05/23/20 22:56 Chloride IVPB 100 mls 1100,2300 REYNALDO Administration Vancomycin HCl 1 gm/ Device 200 mls @ 200 mls/hr 05/22/20 21:00 05/23/20 21:23 IVPB 200 mls Q12HR REYNALDO Administration Oxymetazoline HCl 1 ml 05/23/20 21:00 05/23/20 21:25 Oxymetazoline Hcl 0.05% (30 Ml Bot) NS 05/25/20 21:01 1 ml BID REYNALDO Administration Pantoprazole Sodium 40 mg 05/23/20 16:00 05/23/20 16:05 Pantoprazole 40 Mg Tab PO 40 mg 1600 REYNALDO Administration Prednisone 10 mg 05/23/20 08:00 05/23/20 08:41 Prednisone 20 Mg Tab PO 10 mg QAM-WM REYNALDO Administration Sodium Chloride 10 ml 05/22/20 21:00 05/23/20 21:25 Flush - Normal Saline 10 Ml Syringe IVF 10 ml Q12HR REYNALDO Administration Tacrolimus 2 mg 05/22/20 21:00 05/23/20 21:24 Tacrolimus 1 Mg Cap PO 2 mg BID REYNALDO Administration Hospitalist Exam Vitals: Vital Signs (12 hours) Temp Pulse Resp BP Pulse Ox 05/24/20 04:16 98 05/24/20 03:00 98.3 F 97 16 135/70 98 05/23/20 23:49 98.0 F 92 16 115/78 98 05/23/20 21:21 98.9 F 92 20 131/73 97 05/23/20 20:00 98 Weight Weight 193 lb 8 oz General Appearance: NAD Heart: RRR, no murmur Respiratory: CTAB, no wheezes, no rales, no ronchi Respiratory - other findings: good air movement Gastrointestinal: soft, non-tender, non-distended, normal bowel sounds Extremities: no cyanosis, no clubbing, no edema Psychiatric: normal affect Hosp A/P (1) Bacteremia Code(s): R78.81 - BACTEREMIA Status: Suspected (2) Acute and chronic respiratory failure Code(s): J96.20 - ACUTE AND CHR RESP FAILURE, UNSP W HYPOXIA OR HYPERCAPNIA Status: Acute Qualifiers: Respiratory failure complication: hypoxia Qualified Code(s): J96.21 - Acute and chronic respiratory failure with hypoxia (3) COVID-19 Code(s): U07.1 - COVID-19 Status: Chronic (4) History of renal transplant Status: Acute (5) Hypomagnesemia Code(s): E83.42 - HYPOMAGNESEMIA Status: Acute (6) Hypoalbuminemia Code(s): E88.09 - OTH DISORDERS OF PLASMA-PROTEIN METABOLISM, NEC Status: Acute (7) DM2 (diabetes mellitus, type 2) Status: Acute - Plan Positive blood culture - concern for bacteremia in this patient on immunosuppression and acute decompensation - ID consult - continue both cefepime and Vanc for now Acute shortness of breath - uncertain etiology - may be related to bronchospasm vs vocal cord spasm. Will monitor and order prn nebs Acute resp failure with hx of complicated covid infection and lung changes c/w sequelae of covid infection - appreciate Pulm recs - continue Cefepime and Vanc for now - follow cultures - will need desat study prior to discharge Hx of renal transplant - continue current meds - bactrim per ID and Nephrology Nasal congestion - improved - oxymetolazone bi x 6 doses - if needed - nasal saline prn - start flonase GERD - protonix with home dosing hx of c diff - continue florastor DM - continue home tradjenta - this hospital substitutes alogliptin - pt has declined finger stick glucose dvt prophy - eliquis gi prophy - home protonix code status full reviewed plan of care with patient/nurse, no questions or further needs at end of eval
[2020-05-24] MEDS: predniSONE 20 MG TAB PO SCH (09:30)
[2020-05-24] MEDS: Fluticasone Propionate Nasal Spray 16 gm Bottle NASAL SCH ×2 (09:31→10:18)
[2020-05-24] MEDS: Apixaban 5 MG TAB PO SCH ×2 (09:31→21:40)
[2020-05-24] MEDS: Magnesium Oxide 400 MG TAB PO SCH (09:32)
[2020-05-24] MEDS: Sodium Chloride 0.65% Nasal 44 ML BOT EA NARE PRN (09:32)
[2020-05-24] MEDS: Vancomycin 1 GM in Premix Bag 1 BAG IVPB SCH (09:32)
[2020-05-24] MEDS: Tacrolimus 1 MG CAP PO SCH ×2 (09:33→21:40)
[2020-05-24] MEDS: Saccharomyces boulardii 250 MG CAP PO SCH (09:33)
[2020-05-24] MEDS: Alogliptin 25 MG TAB PO SCH (09:38)
[2020-05-24] MEDS: Oxymetazoline HCl 0.05% (30 ML BOT) NS SCH ×2 (09:38→10:17)
[2020-05-24] MEDS: Cefepime 1 GM in Sodium Chloride 0.9% 100 ML IVPB SCH ×2 (11:08→21:40)
--- NOTE | 2020-05-24 14:35 | PRG ---
DATE OF SERVICE: 05/24/2020 SUBJECTIVE: The patient is doing quite well. Has no complaints. OBJECTIVE: VITAL SIGNS: Temperature 98.1, pulse 91, respirations 20, O2 saturation 99% on 3 L, blood pressure 133/80. HEENT: Unremarkable. NECK: No adenopathy or JVD. LUNGS: Clear. CARDIAC: S1 and S2. Regular. ABDOMEN: Soft. EXTREMITIES: No edema. LABORATORY DATA: White blood cell count 12, hematocrit 27.6, and platelet count 262. Sodium 137, potassium 3.9, BUN 15, creatinine 1.0, glucose 113. Her line cultures, Coag-negative staph from her line. ASSESSMENT: 1. Possible line sepsis. 2. COVID-19 pneumonia with residual fibrotic findings. PLAN: I think she needs oxygen at home whether she qualifies for or not. This would give her the opportunity to have something at home in case she got in the respiratory distress. I agree with all other measures. Job ID: [id number]
--- NOTE | 2020-05-24 16:32 | PDOC.NEPPN ---
- Subjective Encounter Date: 05/24/20 Subjective: Seen and examined. Had an episode of respiratory distress last night which improved with increase in oxygen supplementation. Remained afebrile. - Objective Vital Signs & Weight: Vital Signs (12 hours) Temp Pulse Resp BP Pulse Ox 05/24/20 15:40 98.3 F 88 20 149/88 H 97 05/24/20 11:54 98.1 F 91 20 133/80 99 05/24/20 08:00 98.2 F 83 16 134/86 100 Weight Weight 193 lb 8 oz I&O: 05/23/20 05/24/20 05/25/20 06:59 06:59 06:59 Intake Total 237 1700 450 Output Total 1300 Balance 237 400 450 Result Diagrams: 05/24/20 04:47 05/24/20 04:47 Nephrology ROS - Medication Medications: Active Medications Generic Name Dose Route Start Last Admin Trade Name Freq PRN Reason Stop Dose Admin Alogliptin Benzoate 25 mg 05/24/20 09:00 05/24/20 09:38 Alogliptin 25 Mg Tab PO 25 mg DAILY REYNALDO Administration Apixaban 5 mg 05/22/20 21:00 05/24/20 09:31 Apixaban 5 Mg Tab PO 5 mg BID REYNALDO Administration Fluticasone Propionate 0 gm 05/23/20 21:00 05/24/20 10:18 Fluticasone Propionate Nasal [place] 16 Gm Bottle NASAL Not Given BID REYNALDO Cefepime HCl 1 gm/ Sodium 100 mls @ 200 mls/hr 05/22/20 23:00 05/24/20 11:08 Chloride IVPB 100 mls 1100,2300 REYNALDO Administration Vancomycin HCl 1 gm/ Device 200 mls @ 200 mls/hr 05/22/20 21:00 05/24/20 09:32 IVPB 200 mls Q12HR REYNALDO Administration Magnesium Oxide 400 mg 05/24/20 09:00 05/24/20 09:32 Magnesium Oxide 400 Mg Tab PO 400 mg DAILY REYNALDO Administration Oxymetazoline HCl 1 ml 05/23/20 21:00 05/24/20 10:17 Oxymetazoline Hcl 0.05% (30 Ml Bot) NS 05/25/20 21:01 Not Given BID REYNALDO Pantoprazole Sodium 40 mg 05/23/20 16:00 05/24/20 15:50 Pantoprazole 40 Mg Tab PO 40 mg 1600 REYNALDO Administration Prednisone 10 mg 05/23/20 08:00 05/24/20 09:30 Prednisone 20 Mg Tab PO 10 mg QAM-WM REYNALDO Administration Saccharomyces Boulardii 250 mg 05/24/20 09:00 05/24/20 09:33 Saccharomyces Boulardii 250 Mg Cap PO 250 mg DAILY REYNALDO Administration Sodium Chloride 10 ml 05/22/20 21:00 05/24/20 09:33 Flush - Normal Saline 10 Ml Syringe IVF 10 ml Q12HR REYNALDO Administration Sodium Chloride 1 ml 05/24/20 07:41 05/24/20 09:32 Sodium Chloride 0.65% Nasal 44 Ml Bot EA NARE 1 sprays TID PRN Administration Nasal Congestion Tacrolimus 2 mg 05/22/20 21:00 05/24/20 09:33 Tacrolimus 1 Mg Cap PO 2 mg BID REYNALDO Administration - Exam General Appearance: awake alert General - other findings: anxious Eye: anicteric sclera ENT: normocephalic atraumatic, moist mucosa Neck: supple, symmetric, no JVD Neck - other findings: anterior neck bandaid at site of prior tracheostomy Respiratory: no wheezes, no rales, no ronchi, normal chest expansion, no tachypnea Cardiovascular: RRR Gastrointestinal: soft, non-tender, non-distended, normal bowel sounds Extremities: no edema Neurological: CN's grossly intact, no focal deficits PSYCH: normal affect, A&O x 3 Psychiatric - other findings: anxious Nephrology Results - Labs Result Diagrams: 05/24/20 04:47 05/24/20 04:47 Lab results: WBC 12.4 thou/uL (4.8-10.8) H 05/24/20 04:47 Hgb 8.4 g/dL (12.0-16.0) L 05/24/20 04:47 Hct 27.6 % (36.0-47.0) L 05/24/20 04:47 MCV 80.3 fL (78.0-98.0) 05/24/20 04:47 Plt Count 262 thou/uL (130-400) 05/24/20 04:47 Neutrophils % 85.6 % (42.0-75.0) H 05/24/20 04:47 Band Neuts % (Manual) 1 % (5-11) L 05/23/20 09:09 ESR Westergren 27 mm/hr (Less than 30) 05/22/20 11:38 ABG pH 7.40 (7.35-7.45) 05/22/20 10:45 ABG pCO2 34.4 mmHg (35.0-45.0) L 05/22/20 10:45 ABG pO2 116.2 mmHg (> 80.0) H 05/22/20 10:45 VBG pH 7.28 (7.32-7.43) L 05/22/20 09:00 VBG pCO2 45.9 mmHg (42.0-51.0) 05/22/20 09:00 VBG pO2 27.3 mmHg (35.0-45.0) L 05/22/20 09:00 Sodium 137 mmol/L (136-145) 05/24/20 04:47 Potassium 3.9 mmol/L (3.5-5.1) 05/24/20 04:47 Chloride 108 mmol/L (98-107) H 05/24/20 04:47 Carbon Dioxide 21 mmol/L (23-31) L 05/24/20 04:47 BUN 15 mg/dL (9.8-20.1) 05/24/20 04:47 Creatinine 1.00 mg/dL (0.6-1.1) 05/24/20 04:47 Glucose 113 mg/dL (80-115) 05/24/20 04:47 Lactic Acid 2.2 mmol/L (0.5-2.2) 05/22/20 12:24 Calcium 8.6 mg/dL (7.8-10.44) 05/24/20 04:47 Total Bilirubin 0.5 mg/dL (0.2-1.2) 05/22/20 09:01 AST 18 U/L (5-34) 05/22/20 09:01 ALT Less than 7 U/L (8-55) L 05/22/20 09:01 Alkaline Phosphatase 52 U/L (40-110) 05/22/20 09:01 Creatine Kinase 19 U/L (29-168) L 05/22/20 09:01 CK-MB (CK-2) 1.0 ng/mL (0-6.6) 05/22/20 09:01 Troponin I 0.038 ng/mL (< 0.028) H 05/22/20 15:30 C-Reactive Protein 0.58 mg/dL (= or < 0.5) H 05/22/20 11:38 B-Natriuretic Peptide 191.9 pg/mL (0-100) H 05/22/20 09:01 Serum Total Protein 6.2 g/dL (5.8-8.1) 05/22/20 09:01 Albumin 2.9 g/dL (3.4-4.8) L 05/23/20 09:09 Lipase 17 U/L (8-78) 05/22/20 09:01 Urine Ketones Negative mg/dL (Negative) 05/22/20 15:38 Urine Blood Negative (Negative) 05/22/20 15:38 Urine Nitrite Negative (Negative) 05/22/20 15:38 Ur Leukocyte Esterase Negative (Negative) 05/22/20 15:38 Sodium 137 mmol/L (136-145) 05/24/20 04:47 Potassium 3.9 mmol/L (3.5-5.1) 05/24/20 04:47 Chloride 108 mmol/L (98-107) H 05/24/20 04:47 Carbon Dioxide 21 mmol/L (23-31) L 05/24/20 04:47 Anion Gap 12 mmol/L (10-20) 05/24/20 04:47 BUN 15 mg/dL (9.8-20.1) 05/24/20 04:47 Creatinine 1.00 mg/dL (0.6-1.1) 05/24/20 04:47 Glucose 113 mg/dL (80-115) 05/24/20 04:47 Calcium 8.6 mg/dL (7.8-10.44) 05/24/20 04:47 Phosphorus 3.8 mg/dL (2.3-4.7) 05/23/20 09:09 Magnesium 1.8 mg/dL (1.6-2.6) 05/24/20 04:47 Albumin 2.9 g/dL (3.4-4.8) L 05/23/20 09:09 Nephrology AP PN - Plan ASSESSMENT: Acute respiratory failure with hypoxia: Etiology is unclear. Improved with oxygen supplementation. ? acute infectious patholy or reactive airway disease Status post renal transplant. Renal function is stable. Creat today is 1.0 during this hospitalization Possible covid reinfection. Patient was treated at [facility] between Mar 2020 and apr 2020 and did have a negative covid test. She tested positive Diabetes on Tradjenta. Recent COVID infection/pneumonia with acute respiratory failure Hypomagnesemia Positive blood culture with 1/2 bottles growing Coag negative stap. Most likely contaminant. PLAN Start oral magnesium supplementation Continue ISN with pred and prograf. Continue other treatments. Follow renal function.
[2020-05-24 20:46] LABS: Vancomycin, Trough 33.4 ug/mL
[2020-05-25] MEDS: Fluticasone Propionate Nasal Spray 16 gm Bottle NASAL SCH ×3 (02:16→20:13)
[2020-05-25] MEDS: Oxymetazoline HCl 0.05% (30 ML BOT) NS SCH ×3 (02:17→20:12)
[2020-05-25] MEDS: Vancomycin 1 GM in Premix Bag 1 BAG IVPB SCH (02:18)
[2020-05-25 05:27] LABS: #Eosinphils 0.1 thou/uL (0.0-0.7); #Lymphocytes 0.9 thou/uL (1.20-3.40); #Monocytes 0.7 thou/uL (0.11-0.59); #Neutrophils 5.7 thou/uL (1.40-6.50); %Basophils 0.6 % (0.0-1.0); %Eosinophils 0.8 % (0.0-10.0); %Lymphocytes 11.9 % (21.0-51.0); %Monocytes 9.3 % (0.0-10.0); %Neutrophils 77.4 % (42.0-75.0); Hemoglobin 7.9 g/dL (12.0-16.0); Mean Corpuscular HGB CONC 30.9 g/dL (32.0-36.0); Mean Corpuscular Hemoglobin 24.6 pg (27.0-31.0); Mean Corpuscular Volume 79.5 fL (78.0-98.0); Mean Platelet Volume 9.2 fL (7.4-10.4); Platelet Count 226 thou/uL (130-400); RBC Distribution Width 18.8 % (11.5-14.5); Red Blood Cell (RBC) Count 3.21 mill/uL (4.20-5.40); White Blood Cell (WBC) Count 7.3 thou/uL (4.8-10.8)
[2020-05-25 05:47] LABS: Anion Gap 9 mmol/L (10-20); BUN (Urea Nitrogen) 13 mg/dL (9.8-20.1); Calc. Creatinine Clearance 111 mL/min (70-130); Calcium 8.4 mg/dL (7.8-10.44); Carbon Dioxide 24 mmol/L (23-31); Chloride 110 mmol/L (98-107); Glucose 101 mg/dL (80-115); Sodium 139 mmol/L (136-145)
[2020-05-25 07:07] LABS: Iron 14 ug/dL (50-170); Iron Binding Capacity, Total 229 mcg/dL (265-497)
[2020-05-25] MEDS: predniSONE 20 MG TAB PO SCH (08:42)
[2020-05-25] MEDS: Magnesium Oxide 400 MG TAB PO SCH (08:45)
[2020-05-25] MEDS: Apixaban 5 MG TAB PO SCH ×2 (08:45→20:12)
[2020-05-25] MEDS: Saccharomyces boulardii 250 MG CAP PO SCH (08:45)
[2020-05-25] MEDS: Tacrolimus 1 MG CAP PO SCH ×2 (08:45→20:12)
--- NOTE | 2020-05-25 09:02 | PDOC.HOSPP ---
- Subjective Encounter Date: 05/25/20 Encounter Time: 09:05 Subjective: alert, comfortable on O2 - Objective Vital Signs & Weight: Vital Signs (12 hours) Temp Pulse Resp BP Pulse Ox 05/25/20 05:12 93 L 05/25/20 04:00 98.5 F 67 16 118/83 97 05/25/20 02:02 98 05/25/20 00:00 97.1 F L 76 14 144/73 H 98 Weight Weight 193 lb 8 oz I&O: 05/24/20 05/25/20 05/26/20 06:59 06:59 06:59 Intake Total 1700 800 Output Total 1300 Balance 400 800 Result Diagrams: 05/25/20 04:49 05/25/20 04:49 Hospitalist ROS - Medication Medications: Active Medications Generic Name Dose Route Start Last Admin Trade Name Freq PRN Reason Stop Dose Admin Albuterol Sulfate 2.5 mg 05/24/20 07:41 05/25/20 05:12 Albuterol Sulfate 2.5 Mg/3 Ml Neb NEB 2.5 mg [id number] PRN Administration Wheezing Alogliptin Benzoate 25 mg 05/24/20 09:00 05/24/20 09:38 Alogliptin 25 Mg Tab PO 25 mg DAILY REYNALDO Administration Apixaban 5 mg 05/22/20 21:00 05/24/20 21:40 Apixaban 5 Mg Tab PO 5 mg BID REYNALDO Administration Fluticasone Propionate 0 gm 05/23/20 21:00 05/25/20 02:16 Fluticasone Propionate Nasal [place] 16 Gm Bottle NASAL Not Given BID REYNALDO Cefepime HCl 1 gm/ Sodium 100 mls @ 200 mls/hr 05/22/20 23:00 05/24/20 21:40 Chloride IVPB 100 mls 1100,2300 REYNALDO Administration Magnesium Oxide 400 mg 05/24/20 09:00 05/24/20 09:32 Magnesium Oxide 400 Mg Tab PO 400 mg DAILY REYNALDO Administration Oxymetazoline HCl 1 ml 05/23/20 21:00 05/25/20 02:17 Oxymetazoline Hcl 0.05% (30 Ml Bot) NS 05/25/20 21:01 Not Given BID REYNALDO Pantoprazole Sodium 40 mg 05/23/20 16:00 05/24/20 15:50 Pantoprazole 40 Mg Tab PO 40 mg 1600 REYNALDO Administration Prednisone 10 mg 05/23/20 08:00 05/24/20 09:30 Prednisone 20 Mg Tab PO 10 mg QAM-WM REYNALDO Administration Saccharomyces Boulardii 250 mg 05/24/20 09:00 05/24/20 09:33 Saccharomyces Boulardii 250 Mg Cap PO 250 mg DAILY REYNALDO Administration Sodium Chloride 10 ml 05/22/20 21:00 05/24/20 21:00 Flush - Normal Saline 10 Ml Syringe IVF 10 ml Q12HR REYNALDO Administration Sodium Chloride 1 ml 05/24/20 07:41 05/24/20 09:32 Sodium Chloride 0.65% Nasal 44 Ml Bot EA NARE 1 sprays TID PRN Administration Nasal Congestion Tacrolimus 2 mg 05/22/20 21:00 05/24/20 21:40 Tacrolimus 1 Mg Cap PO 2 mg BID REYNALDO Administration Hospitalist Exam Vitals: Vital Signs (12 hours) Temp Pulse Resp BP Pulse Ox 05/25/20 05:12 93 L 05/25/20 04:00 98.5 F 67 16 118/83 97 05/25/20 02:02 98 05/25/20 00:00 97.1 F L 76 14 144/73 H 98 Weight Weight 193 lb 8 oz General Appearance: awake alert Neck: no JVD Heart: RRR, no murmur Respiratory: CTAB Gastrointestinal: soft, normal bowel sounds Extremities: no edema Hosp A/P (1) Bacteremia associated with intravascular line Code(s): T82.7XXA - INFECT/INFLM REACT D/T OTH CARDI/VASC DEV/IMPLNT/GRFT, INIT; R78.81 - BACTEREMIA Status: Acute Qualifiers: Encounter type: initial encounter Qualified Code(s): T82.7XXA - Infection and inflammatory reaction due to other cardiac and vascular devices, implants and grafts, initial encounter; R78.81 - Bacteremia (2) Acute and chronic respiratory failure Code(s): J96.20 - ACUTE AND CHR RESP FAILURE, UNSP W HYPOXIA OR HYPERCAPNIA Status: Acute Qualifiers: Respiratory failure complication: hypoxia Qualified Code(s): J96.21 - Acute and chronic respiratory failure with hypoxia (3) DM2 (diabetes mellitus, type 2) Status: Chronic Qualifiers: Diabetes mellitus intermediate accountant insulin use: without intermediate accountant use Diabetes mellitus complication status: without complication Qualified Code(s): E11.9 - Type 2 diabetes mellitus without complications (4) History of pulmonary embolism Code(s): Z86.711 - PERSONAL HISTORY OF PULMONARY EMBOLISM Status: Chronic (5) History of renal transplant Status: Chronic (6) COVID-19 Code(s): U07.1 - COVID-19 Status: Chronic - Plan bacteremia: line culture, Staph, immune compromised. Cont vancomycicin, await ID consult COVID: cont O2 Support Post renal transplant: comt anti-rejection meds
[2020-05-25] MEDS: Sodium Chloride 0.65% Nasal 44 ML BOT EA NARE PRN (09:09)
--- NOTE | 2020-05-25 09:14 | PRG ---
DATE OF SERVICE: 05/25/2020 SUBJECTIVE: The patient is doing reasonably well. PHYSICAL EXAMINATION: VITAL SINGS: O2 sats 93%. Temperature 98.5, pulse rate 67, respirations are 18, blood pressure 118/83. HEENT: Unremarkable. NECK: No adenopathy or JVD. CHEST: Fairly clear. CARDIAC: S1 and S2, regular. ABDOMEN: Soft. EXTREMITIES: No edema. LABORATORY DATA: White blood cell count 7.3, hematocrit 25.5, and platelet count 226. Sodium 139, potassium 4, chloride 110, CO2 of 24, BUN 13, creatinine 0.7, glucose 82. ASSESSMENT: 1. Hypoxemia related to the recent COVID pneumonia. 2. [id number]. 3. History of renal transplant. PLAN: 1. She will likely need IV antibiotics at the time of discharge. 2. She also needs home oxygen for an indefinite period. Job ID: [id number]
--- NOTE | 2020-05-25 10:20 | PDOC.NEPPN ---
- Subjective Encounter Date: 05/25/20 Subjective: seen. No new problem. Remained afebrile. - Objective Vital Signs & Weight: Vital Signs (12 hours) Temp Pulse Resp BP Pulse Ox 05/25/20 09:00 98.0 F 93 20 152/67 H 100 05/25/20 05:12 93 L 05/25/20 04:00 98.5 F 67 16 118/83 97 05/25/20 02:02 98 05/25/20 00:00 97.1 F L 76 14 144/73 H 98 Weight Weight 193 lb 8 oz I&O: 05/24/20 05/25/20 05/26/20 06:59 06:59 06:59 Intake Total 1700 800 250 Output Total 1300 Balance 400 800 250 Result Diagrams: 05/25/20 04:49 05/25/20 04:49 Nephrology ROS - Medication Medications: Active Medications Generic Name Dose Route Start Last Admin Trade Name Freq PRN Reason Stop Dose Admin Albuterol Sulfate 2.5 mg 05/24/20 07:41 05/25/20 05:12 Albuterol Sulfate 2.5 Mg/3 Ml Neb NEB 2.5 mg [id number] PRN Administration Wheezing Alogliptin Benzoate 25 mg 05/24/20 09:00 05/24/20 09:38 Alogliptin 25 Mg Tab PO 25 mg DAILY REYNALDO Administration Apixaban 5 mg 05/22/20 21:00 05/25/20 08:45 Apixaban 5 Mg Tab PO 5 mg BID REYNALDO Administration Fluticasone Propionate 0 gm 05/23/20 21:00 05/25/20 08:45 Fluticasone Propionate Nasal Hansen 16 Gm Bottle NASAL Not Given BID REYNALDO Cefepime HCl 1 gm/ Sodium 100 mls @ 200 mls/hr 05/22/20 23:00 05/24/20 21:40 Chloride IVPB 100 mls 1100,2300 REYNALDO Administration Magnesium Oxide 400 mg 05/24/20 09:00 05/25/20 08:45 Magnesium Oxide 400 Mg Tab PO 400 mg DAILY REYNALDO Administration Oxymetazoline HCl 1 ml 05/23/20 21:00 05/25/20 08:46 Oxymetazoline Hcl 0.05% (30 Ml Bot) NS 05/25/20 21:01 Not Given BID REYNALDO Pantoprazole Sodium 40 mg 05/23/20 16:00 05/24/20 15:50 Pantoprazole 40 Mg Tab PO 40 mg 1600 REYNALDO Administration Prednisone 10 mg 05/23/20 08:00 05/25/20 08:42 Prednisone 20 Mg Tab PO 10 mg QAM-WM REYNALDO Administration Saccharomyces Boulardii 250 mg 05/24/20 09:00 05/25/20 08:45 Saccharomyces Boulardii 250 Mg Cap PO 250 mg DAILY REYNALDO Administration Sodium Chloride 10 ml 05/22/20 21:00 05/25/20 08:46 Flush - Normal Saline 10 Ml Syringe IVF 10 ml Q12HR REYNALDO Administration Sodium Chloride 1 ml 05/24/20 07:41 05/25/20 09:09 Sodium Chloride 0.65% Nasal 44 Ml Bot EA NARE 1 sprays TID PRN Administration Nasal Congestion Tacrolimus 2 mg 05/22/20 21:00 05/25/20 08:45 Tacrolimus 1 Mg Cap PO 2 mg BID REYNALDO Administration - Exam General Appearance: awake alert Eye: anicteric sclera ENT: normocephalic atraumatic, moist mucosa Neck: supple, symmetric Respiratory - other findings: fair air entry with some transmitted sound Cardiovascular: RRR Gastrointestinal: soft, non-tender, non-distended, normal bowel sounds Extremities: no cyanosis, no edema Neurological: CN's grossly intact PSYCH: A&O x 3 Nephrology Results - Labs Result Diagrams: 05/25/20 04:49 05/25/20 04:49 Lab results: WBC 7.3 thou/uL (4.8-10.8) 05/25/20 04:49 Hgb 7.9 g/dL (12.0-16.0) L 05/25/20 04:49 Hct 25.5 % (36.0-47.0) L 05/25/20 04:49 MCV 79.5 fL (78.0-98.0) 05/25/20 04:49 Plt Count 226 thou/uL (130-400) 05/25/20 04:49 Neutrophils % 77.4 % (42.0-75.0) H 05/25/20 04:49 Band Neuts % (Manual) 1 % (5-11) L 05/23/20 09:09 ESR Westergren 27 mm/hr (Less than 30) 05/22/20 11:38 ABG pH 7.40 (7.35-7.45) 05/22/20 10:45 ABG pCO2 34.4 mmHg (35.0-45.0) L 05/22/20 10:45 ABG pO2 116.2 mmHg (> 80.0) H 05/22/20 10:45 VBG pH 7.28 (7.32-7.43) L 05/22/20 09:00 VBG pCO2 45.9 mmHg (42.0-51.0) 05/22/20 09:00 VBG pO2 27.3 mmHg (35.0-45.0) L 05/22/20 09:00 Sodium 139 mmol/L (136-145) 05/25/20 04:49 Potassium 4.0 mmol/L (3.5-5.1) 05/25/20 04:49 Chloride 110 mmol/L (98-107) H 05/25/20 04:49 Carbon Dioxide 24 mmol/L (23-31) 05/25/20 04:49 BUN 13 mg/dL (9.8-20.1) 05/25/20 04:49 Creatinine 0.72 mg/dL (0.6-1.1) 05/25/20 04:49 Glucose 101 mg/dL (80-115) 05/25/20 04:49 Lactic Acid 2.2 mmol/L (0.5-2.2) 05/22/20 12:24 Calcium 8.4 mg/dL (7.8-10.44) 05/25/20 04:49 Total Bilirubin 0.5 mg/dL (0.2-1.2) 05/22/20 09:01 AST 18 U/L (5-34) 05/22/20 09:01 ALT Less than 7 U/L (8-55) L 05/22/20 09:01 Alkaline Phosphatase 52 U/L (40-110) 05/22/20 09:01 Creatine Kinase 19 U/L (29-168) L 05/22/20 09:01 CK-MB (CK-2) 1.0 ng/mL (0-6.6) 05/22/20 09:01 Troponin I 0.038 ng/mL (< 0.028) H 05/22/20 15:30 C-Reactive Protein 0.58 mg/dL (= or < 0.5) H 05/22/20 11:38 B-Natriuretic Peptide 191.9 pg/mL (0-100) H 05/22/20 09:01 Serum Total Protein 6.2 g/dL (5.8-8.1) 05/22/20 09:01 Albumin 2.9 g/dL (3.4-4.8) L 05/23/20 09:09 Lipase 17 U/L (8-78) 05/22/20 09:01 Urine Ketones Negative mg/dL (Negative) 05/22/20 15:38 Urine Blood Negative (Negative) 05/22/20 15:38 Urine Nitrite Negative (Negative) 05/22/20 15:38 Ur Leukocyte Esterase Negative (Negative) 05/22/20 15:38 Sodium 139 mmol/L (136-145) 05/25/20 04:49 Potassium 4.0 mmol/L (3.5-5.1) 05/25/20 04:49 Chloride 110 mmol/L (98-107) H 05/25/20 04:49 Carbon Dioxide 24 mmol/L (23-31) 05/25/20 04:49 Anion Gap 9 mmol/L (10-20) L 05/25/20 04:49 BUN 13 mg/dL (9.8-20.1) 05/25/20 04:49 Creatinine 0.72 mg/dL (0.6-1.1) 05/25/20 04:49 Glucose 101 mg/dL (80-115) 05/25/20 04:49 Calcium 8.4 mg/dL (7.8-10.44) 05/25/20 04:49 Phosphorus 3.8 mg/dL (2.3-4.7) 05/23/20 09:09 Magnesium 1.8 mg/dL (1.6-2.6) 05/24/20 04:47 Albumin 2.9 g/dL (3.4-4.8) L 05/23/20 09:09 Nephrology AP PN - Plan ASSESSMENT: Acute respiratory failure with hypoxia: Etiology is unclear. Improved with oxygen supplementation. ? acute infectious patholy or reactive airway disease Status post renal transplant. Renal function remained stable. Possible covid reinfection. Patient was treated at [facility] between Mar 2020 and apr 2020 and did have a negative covid test. She tested positive Diabetes on Tradjenta. Recent COVID infection/pneumonia with acute respiratory failure Hypomagnesemia Positive blood culture with 1/2 bottles growing Coag negative staph. Anemia: Iron deficiency +/- Chronic illness/CKD. PLAN Start IV iron therapy Continue ISN with pred and prograf. Continue other treatments. Follow renal function.
[2020-05-25] MEDS: Cefepime 1 GM in Sodium Chloride 0.9% 100 ML IVPB SCH ×2 (10:21→22:28)
[2020-05-25] MEDS: Alogliptin 25 MG TAB PO SCH (10:21)
[2020-05-25] MEDS ORDERED: Iron, Sodium Ferric Gluconate 250 MG in Sodium Chloride 0.9% 100 ML IVPB SCH (10:30)
[2020-05-25 20:28] LABS: Vancomycin, Random 17.8 ug/mL (See Comment)
[2020-05-25] MEDS ORDERED: Vancomycin 1 GM in Premix Bag 1 BAG IVPB SCH (21:00)
[2020-05-25] MEDS: Vancomycin HCl 500 MG in Sodium Chloride 0.9% 100 ML IVPB SCH (21:37)
[2020-05-26] MEDS: predniSONE 20 MG TAB PO SCH (07:52)
[2020-05-26] MEDS: Apixaban 5 MG TAB PO SCH ×2 (07:53→20:54)
[2020-05-26] MEDS: Saccharomyces boulardii 250 MG CAP PO SCH (07:53)
[2020-05-26] MEDS: Magnesium Oxide 400 MG TAB PO SCH (07:53)
[2020-05-26] MEDS: Fluticasone Propionate Nasal Spray 16 gm Bottle NASAL SCH (07:53)
[2020-05-26] MEDS: Tacrolimus 1 MG CAP PO SCH ×2 (07:54→20:54)
[2020-05-26] MEDS: Vancomycin HCl 500 MG in Sodium Chloride 0.9% 100 ML IVPB SCH ×2 (08:19→22:52)
[2020-05-26] MEDS: Alogliptin 25 MG TAB PO SCH (08:19)
[2020-05-26 08:34] LABS: Anion Gap 11 mmol/L (10-20); BUN (Urea Nitrogen) 9 mg/dL (9.8-20.1); Calc. Creatinine Clearance 104 mL/min (70-130); Calcium 8.8 mg/dL (7.8-10.44); Carbon Dioxide 24 mmol/L (23-31); Chloride 109 mmol/L (98-107); Glucose 114 mg/dL (80-115); Potassium 3.8 mmol/L (3.5-5.1); Sodium 140 mmol/L (136-145)
[2020-05-26] MEDS ORDERED: Iron, Sodium Ferric Gluconate 250 MG in Sodium Chloride 0.9% 100 ML IVPB SCH (09:45)
--- NOTE | 2020-05-26 09:49 | PRG ---
DATE OF SERVICE: 05/26/2020 SUBJECTIVE: The patient is doing reasonably well. OBJECTIVE: VITAL SIGNS: Temperature 98.1, pulse 70, respirations 18, O2 saturation 94% on 3 L, and blood pressure 139/95. HEENT: Unremarkable. NECK: No adenopathy or JVD. LUNGS: Clear. CARDIAC: S1 and S2 regular. ABDOMEN: Soft. LABORATORY DATA: Sodium 140, potassium 3.8, chloride 109, CO2 of 24, BUN 9, creatinine 0.7, glucose 114. ASSESSMENT: 1. Status post COVID-19 pneumonia. 2. Status post trach. 3. Hypoxemia. 4. Line sepsis. PLAN: The patient will be sent home on oxygen when she is ready to go home from an infectious disease standpoint. Job ID: [id number]
[2020-05-26] MEDS: Cefepime 1 GM in Sodium Chloride 0.9% 100 ML IVPB SCH ×2 (10:03→23:38)
--- NOTE | 2020-05-26 10:38 | PDOC.HOSPP ---
- Subjective Encounter Date: 05/26/20 Encounter Time: 10:37 Subjective: I"M ready to go home" - Objective Vital Signs & Weight: Vital Signs (12 hours) Temp Pulse Resp BP Pulse Ox 05/26/20 08:00 94 L 05/26/20 07:40 98.1 F 70 18 139/95 H 94 L 05/26/20 03:38 98.3 F 83 18 164/93 H 96 05/26/20 00:07 98.2 F 77 20 156/83 H 100 Weight Weight 193 lb 8 oz I&O: 05/25/20 05/26/20 05/27/20 06:59 06:59 06:59 Intake Total 800 1100 200 Balance 800 1100 200 Result Diagrams: 05/25/20 04:49 05/26/20 08:05 Hospitalist ROS - Medication Medications: Active Medications Generic Name Dose Route Start Last Admin Trade Name Freq PRN Reason Stop Dose Admin Albuterol Sulfate 2.5 mg 05/24/20 07:41 05/25/20 05:12 Albuterol Sulfate 2.5 Mg/3 Ml Neb NEB 2.5 mg [id number] PRN Administration Wheezing Alogliptin Benzoate 25 mg 05/24/20 09:00 05/26/20 08:19 Alogliptin 25 Mg Tab PO 25 mg DAILY REYNALDO Administration Apixaban 5 mg 05/22/20 21:00 05/26/20 07:53 Apixaban 5 Mg Tab PO 5 mg BID REYNALDO Administration Fluticasone Propionate 0 gm 05/23/20 21:00 05/26/20 07:53 Fluticasone Propionate Nasal Blain 16 Gm Bottle NASAL Not Given BID REYNALDO Cefepime HCl 1 gm/ Sodium 100 mls @ 200 mls/hr 05/22/20 23:00 05/26/20 10:03 Chloride IVPB 100 mls 1100,2300 REYNALDO Administration Vancomycin HCl 500 mg/ Sodium 100 mls @ 100 mls/hr 05/25/20 21:00 05/26/20 08:19 Chloride IVPB 100 mls 0900,2100 REYNALDO Administration Magnesium Oxide 400 mg 05/24/20 09:00 05/26/20 07:53 Magnesium Oxide 400 Mg Tab PO 400 mg DAILY REYNALDO Administration Pantoprazole Sodium 40 mg 05/23/20 16:00 05/25/20 15:55 Pantoprazole 40 Mg Tab PO 40 mg 1600 REYNALDO Administration Prednisone 10 mg 05/23/20 08:00 05/26/20 07:52 Prednisone 20 Mg Tab PO 10 mg QAM-WM REYNALDO Administration Saccharomyces Boulardii 250 mg 05/24/20 09:00 05/26/20 07:53 Saccharomyces Boulardii 250 Mg Cap PO 250 mg DAILY REYNALDO Administration Sodium Chloride 10 ml 05/22/20 21:00 05/26/20 07:54 Flush - Normal Saline 10 Ml Syringe IVF 10 ml Q12HR REYNALDO Administration Sodium Chloride 1 ml 05/24/20 07:41 05/25/20 09:09 Sodium Chloride 0.65% Nasal 44 Ml Bot EA NARE 1 sprays TID PRN Administration Nasal Congestion Tacrolimus 2 mg 05/22/20 21:00 05/26/20 07:54 Tacrolimus 1 Mg Cap PO 2 mg BID REYNALDO Administration Hospitalist Exam Vitals: Vital Signs (12 hours) Temp Pulse Resp BP Pulse Ox 05/26/20 08:00 94 L 05/26/20 07:40 98.1 F 70 18 139/95 H 94 L 05/26/20 03:38 98.3 F 83 18 164/93 H 96 05/26/20 00:07 98.2 F 77 20 156/83 H 100 Weight Weight 193 lb 8 oz General Appearance: awake alert Neck: no JVD Heart: RRR, no murmur Respiratory: CTAB Gastrointestinal: soft, normal bowel sounds Extremities: no edema Hosp A/P (1) Bacteremia associated with intravascular line Code(s): T82.7XXA - INFECT/INFLM REACT D/T OTH CARDI/VASC DEV/IMPLNT/GRFT, INIT; R78.81 - BACTEREMIA Status: Acute Qualifiers: Encounter type: initial encounter Qualified Code(s): T82.7XXA - Infection and inflammatory reaction due to other cardiac and vascular devices, implants and grafts, initial encounter; R78.81 - Bacteremia (2) Acute and chronic respiratory failure Code(s): J96.20 - ACUTE AND CHR RESP FAILURE, UNSP W HYPOXIA OR HYPERCAPNIA Status: Acute Qualifiers: Respiratory failure complication: hypoxia Qualified Code(s): J96.21 - Acute and chronic respiratory failure with hypoxia (3) DM2 (diabetes mellitus, type 2) Status: Chronic 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 Cont vancomycicin, COVID: cont O2 Support Post renal transplant: cont anti-rejection meds ID to see about pos blood cultue
--- NOTE | 2020-05-26 11:50 | PDOC.NEPPN ---
- Subjective Encounter Date: 05/26/20 Subjective: No new problem. Still requiring oxygen supplementation. Remained afebrile. - Objective Vital Signs & Weight: Vital Signs (12 hours) Temp Pulse Resp BP Pulse Ox 05/26/20 08:00 94 L 05/26/20 07:40 98.1 F 70 18 139/95 H 94 L 05/26/20 03:38 98.3 F 83 18 164/93 H 96 05/26/20 00:07 98.2 F 77 20 156/83 H 100 Weight Weight 193 lb 8 oz I&O: 05/25/20 05/26/20 05/27/20 06:59 06:59 06:59 Intake Total 800 1100 200 Balance 800 1100 200 Result Diagrams: 05/25/20 04:49 05/26/20 08:05 Nephrology ROS - Medication Medications: Active Medications Generic Name Dose Route Start Last Admin Trade Name Freq PRN Reason Stop Dose Admin Albuterol Sulfate 2.5 mg 05/24/20 07:41 05/25/20 05:12 Albuterol Sulfate 2.5 Mg/3 Ml Neb NEB 2.5 mg [id number] PRN Administration Wheezing Alogliptin Benzoate 25 mg 05/24/20 09:00 05/26/20 08:19 Alogliptin 25 Mg Tab PO 25 mg DAILY REYNALDO Administration Apixaban 5 mg 05/22/20 21:00 05/26/20 07:53 Apixaban 5 Mg Tab PO 5 mg BID REYNALDO Administration Fluticasone Propionate 0 gm 05/23/20 21:00 05/26/20 07:53 Fluticasone Propionate Nasal [place]iska 16 Gm Bottle NASAL Not Given BID REYNALDO Cefepime HCl 1 gm/ Sodium 100 mls @ 200 mls/hr 05/22/20 23:00 05/26/20 10:03 Chloride IVPB 100 mls 1100,2300 REYNALDO Administration Vancomycin HCl 500 mg/ Sodium 100 mls @ 100 mls/hr 05/25/20 21:00 05/26/20 08:19 Chloride IVPB 100 mls 0900,2100 REYNALDO Administration Ferric Sodium Gluconate 120 mls @ 60 mls/hr 05/26/20 09:45 05/26/20 11:20 Complex 250 mg/ Sodium IVPB 05/26/20 16:00 120 mls Chloride NOW REYNALDO Administration Magnesium Oxide 400 mg 05/24/20 09:00 05/26/20 07:53 Magnesium Oxide 400 Mg Tab PO 400 mg DAILY REYNALDO Administration Pantoprazole Sodium 40 mg 05/23/20 16:00 05/25/20 15:55 Pantoprazole 40 Mg Tab PO 40 mg 1600 REYNALDO Administration Prednisone 10 mg 05/23/20 08:00 05/26/20 07:52 Prednisone 20 Mg Tab PO 10 mg QAM-WM REYNALDO Administration Saccharomyces Boulardii 250 mg 05/24/20 09:00 05/26/20 07:53 Saccharomyces Boulardii 250 Mg Cap PO 250 mg DAILY REYNALDO Administration Sodium Chloride 10 ml 05/22/20 21:00 05/26/20 07:54 Flush - Normal Saline 10 Ml Syringe IVF 10 ml Q12HR REYNALDO Administration Sodium Chloride 1 ml 05/24/20 07:41 05/25/20 09:09 Sodium Chloride 0.65% Nasal 44 Ml Bot EA NARE 1 sprays TID PRN Administration Nasal Congestion Tacrolimus 2 mg 05/22/20 21:00 05/26/20 07:54 Tacrolimus 1 Mg Cap PO 2 mg BID REYNALDO Administration - Exam General Appearance: awake alert Eye: anicteric sclera ENT: normocephalic atraumatic, moist mucosa Neck: symmetric, no JVD Respiratory: no wheezes, no ronchi, no tachypnea Respiratory - other findings: fair air entry bilaterally Cardiovascular: RRR Gastrointestinal: soft, non-distended, normal bowel sounds Extremities: no edema Neurological: CN's grossly intact, no focal deficits PSYCH: A&O x 3 Nephrology Results - Labs Result Diagrams: 05/25/20 04:49 05/26/20 08:05 Lab results: WBC 7.3 thou/uL (4.8-10.8) 05/25/20 04:49 Hgb 7.9 g/dL (12.0-16.0) L 05/25/20 04:49 Hct 25.5 % (36.0-47.0) L 05/25/20 04:49 MCV 79.5 fL (78.0-98.0) 05/25/20 04:49 Plt Count 226 thou/uL (130-400) 05/25/20 04:49 Neutrophils % 77.4 % (42.0-75.0) H 05/25/20 04:49 Band Neuts % (Manual) 1 % (5-11) L 05/23/20 09:09 ESR Westergren 27 mm/hr (Less than 30) 05/22/20 11:38 ABG pH 7.40 (7.35-7.45) 05/22/20 10:45 ABG pCO2 34.4 mmHg (35.0-45.0) L 05/22/20 10:45 ABG pO2 116.2 mmHg (> 80.0) H 05/22/20 10:45 VBG pH 7.28 (7.32-7.43) L 05/22/20 09:00 VBG pCO2 45.9 mmHg (42.0-51.0) 05/22/20 09:00 VBG pO2 27.3 mmHg (35.0-45.0) L 05/22/20 09:00 Sodium 140 mmol/L (136-145) 05/26/20 08:05 Potassium 3.8 mmol/L (3.5-5.1) 05/26/20 08:05 Chloride 109 mmol/L (98-107) H 05/26/20 08:05 Carbon Dioxide 24 mmol/L (23-31) 05/26/20 08:05 BUN 9 mg/dL (9.8-20.1) L 05/26/20 08:05 Creatinine 0.77 mg/dL (0.6-1.1) 05/26/20 08:05 Glucose 114 mg/dL (80-115) 05/26/20 08:05 Lactic Acid 2.2 mmol/L (0.5-2.2) 05/22/20 12:24 Calcium 8.8 mg/dL (7.8-10.44) 05/26/20 08:05 Total Bilirubin 0.5 mg/dL (0.2-1.2) 05/22/20 09:01 AST 18 U/L (5-34) 05/22/20 09:01 ALT Less than 7 U/L (8-55) L 05/22/20 09:01 Alkaline Phosphatase 52 U/L (40-110) 05/22/20 09:01 Creatine Kinase 19 U/L (29-168) L 05/22/20 09:01 CK-MB (CK-2) 1.0 ng/mL (0-6.6) 05/22/20 09:01 Troponin I 0.038 ng/mL (< 0.028) H 05/22/20 15:30 C-Reactive Protein 0.58 mg/dL (= or < 0.5) H 05/22/20 11:38 B-Natriuretic Peptide 191.9 pg/mL (0-100) H 05/22/20 09:01 Serum Total Protein 6.2 g/dL (5.8-8.1) 05/22/20 09:01 Albumin 2.9 g/dL (3.4-4.8) L 05/23/20 09:09 Lipase 17 U/L (8-78) 05/22/20 09:01 Urine Ketones Negative mg/dL (Negative) 05/22/20 15:38 Urine Blood Negative (Negative) 05/22/20 15:38 Urine Nitrite Negative (Negative) 05/22/20 15:38 Ur Leukocyte Esterase Negative (Negative) 05/22/20 15:38 Sodium 140 mmol/L (136-145) 05/26/20 08:05 Potassium 3.8 mmol/L (3.5-5.1) 05/26/20 08:05 Chloride 109 mmol/L (98-107) H 05/26/20 08:05 Carbon Dioxide 24 mmol/L (23-31) 05/26/20 08:05 Anion Gap 11 mmol/L (10-20) 05/26/20 08:05 BUN 9 mg/dL (9.8-20.1) L 05/26/20 08:05 Creatinine 0.77 mg/dL (0.6-1.1) 05/26/20 08:05 Glucose 114 mg/dL (80-115) 05/26/20 08:05 Calcium 8.8 mg/dL (7.8-10.44) 05/26/20 08:05 Phosphorus 3.8 mg/dL (2.3-4.7) 05/23/20 09:09 Magnesium 1.8 mg/dL (1.6-2.6) 05/24/20 04:47 Albumin 2.9 g/dL (3.4-4.8) L 05/23/20 09:09 Nephrology AP PN - Plan ASSESSMENT: Status post renal transplant. Renal function remained stable. Creat is actually better than recent baseline. Possible covid reinfection. Patient was treated at [facility] between Mar 2020 and apr 2020 and did subsequently had a negative covid test. She however tested positive this admission. Diabetes on Tradjenta. Recent COVID infection/pneumonia with acute respiratory failure Hypomagnesemia Positive blood culture with 1/2 bottles growing Coag negative staph. Anemia: Iron deficiency +/- Chronic illness/CKD. Acute respiratory failure with hypoxia: PLAN Give another dose of IV iron therapy Continue ISN with pred and prograf. Continue other treatments. Follow renal function. Can be discharged from Nephrology point of view. 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.
--- NOTE | 2020-05-26 19:54 | CON ---
DATE OF CONSULTATION: 05/26/2020 REASON: Bacteremia. HISTORY OF PRESENT ILLNESS: 64-year-old, history of type 2 diabetes, end-stage renal disease status post renal transplant in mid 2019, who acquired COVID at the beginning of April and she was treated at [facility], had to be intubated for 2 weeks, had a tracheostomy and then this was removed. She was transferred to [facility] in [place] and stayed there for 2 weeks in May and then sent home just recently. She was sent home without oxygen and the next morning from transfer, she went to the bathroom and on the way back to the bedroom, became acutely dyspneic and had to call EMS and be brought to this hospital. On arrival, O2 saturations were 94 on a nonrebreathing Ventimask, temperature was 98, she was tachycardic, BP 120/50. She appeared anxious and diaphoretic. Other elements of the exam, there were some inspiratory crackles bilaterally. Other findings; white cell count 16,000, hemoglobin 9.8, MCV 81, platelets 362. The initial blood gas was a venous sample with pCO2 of 45, pO2 of 27. The second blood gas was an arterial sample with pH 7.4, pCO2 of 34, pO2 of 116. Her initial chemistry; sodium 140, creatinine 0.97. Transaminase is normal. BNP 191. Albumin 2.8. CRP 0.58. Urinalysis was normal. She still had detected fragments of SARS-CoV-2 RT-PCR on admission and she had a CT chest which was consistent with post COVID syndrome with likely an element of organizing pneumonia and interstitial fibrosis. There is some heart enlargement. The echo showed normal heart function. The patient has received antimicrobials and the fluticasone had a big dose of methylprednisolone. She is now on prednisone 10 mg and she has been on Eliquis since [facility] admission and over the past 24 hours there has been significant improvement. PHYSICAL EXAMINATION: VITAL SIGNS: She is down to 3 L nasal cannula, sating at 97, this is at rest. Respiratory rate 18 to 20, heart rate 78. She has maintained normal temperature throughout. GENERAL: She appears well. She is anxious to go home. No headaches. No visual symptoms. LUNGS: With few scattered crackles mostly on the right side. The left side is fairly clear. No wheezing. HEART: S1, S2. Regular rate. No S3 or S4. ABDOMEN: Soft. Not distended or tender. No ascites. No bladder distention. No organomegaly. EXTREMITIES: No joint inflammatory activity. No edema. Pulses 1+ in dorsalis pedis. Moves all extremities equally. Cognitive function appears to be intact. FOLLOWUP LABORATORY DATA: White cell count is down to 7.3, hemoglobin 7.9, platelets 226. Chemistry; the iron was 14, creatinine 0.77. ASSESSMENT: Type 2 diabetes; end-stage renal disease, status post renal transplant, mid 2019; recent COVID-19, severe course which required mechanical ventilation and tracheostomy, eventual improvement, discharged to LTAC and then home. At home, she did not have any oxygen supplementation and she probably desaturated after effort and had to be brought back to the hospital, but she quickly improved. There was no evidence but she actually had a bacterial pneumonia. I think it was just residual organized pneumonia, interstitial fibrosis from the COVID leading to desaturation upon effort at home. She did not have any backup oxygen supplementation, so that led to the decompensation. The coagulase-negative Staph from the blood cultures is a contaminant. Recommended removal of the central line and consider discharge planning for tomorrow. Job ID: [id number]
[2020-05-27] MEDS: Fluticasone Propionate Nasal Spray 16 gm Bottle NASAL SCH ×2 (05:04→08:20)
[2020-05-27] MEDS: predniSONE 20 MG TAB PO SCH (08:19)
[2020-05-27] MEDS: Apixaban 5 MG TAB PO SCH (08:19)
[2020-05-27] MEDS: Magnesium Oxide 400 MG TAB PO SCH (08:20)
[2020-05-27] MEDS: Tacrolimus 1 MG CAP PO SCH (08:20)
[2020-05-27] MEDS: Saccharomyces boulardii 250 MG CAP PO SCH (08:20)
[2020-05-27 08:34] VITALS: BP 162/81; TEMP 98.1
[2020-05-27] MEDS: Vancomycin HCl 500 MG in Sodium Chloride 0.9% 100 ML IVPB SCH (08:41)
[2020-05-27] MEDS: Cefepime 1 GM in Sodium Chloride 0.9% 100 ML IVPB SCH (08:50)
--- NOTE | 2020-05-27 09:15 | PDOC.NEPPN ---
- Subjective Encounter Date: 05/27/20 Subjective: Seen. No new problem. Remained afebrile. - Objective Vital Signs & Weight: Vital Signs (12 hours) Temp Pulse Resp BP BP Pulse Ox 05/27/20 08:33 98.1 F 77 20 162/81 H 97 05/27/20 08:00 98 05/27/20 03:43 97.9 F 78 16 149/86 H 98 Weight Weight 193 lb 8 oz I&O: 05/26/20 05/27/20 05/28/20 06:59 06:59 06:59 Intake Total 1100 680 Balance 1100 680 Result Diagrams: 05/25/20 04:49 05/26/20 08:05 Nephrology ROS - Medication Medications: Active Medications Generic Name Dose Route Start Last Admin Trade Name Freq PRN Reason Stop Dose Admin Albuterol Sulfate 2.5 mg 05/24/20 07:41 05/25/20 05:12 Albuterol Sulfate 2.5 Mg/3 Ml Neb NEB 2.5 mg [id number] PRN Administration Wheezing Alogliptin Benzoate 25 mg 05/24/20 09:00 05/26/20 08:19 Alogliptin 25 Mg Tab PO 25 mg DAILY REYNALDO Administration Apixaban 5 mg 05/22/20 21:00 05/27/20 08:19 Apixaban 5 Mg Tab PO 5 mg BID REYNALDO Administration Fluticasone Propionate 0 gm 05/23/20 21:00 05/27/20 08:20 Fluticasone Propionate Nasal [place] 16 Gm Bottle NASAL Not Given BID REYNALDO Cefepime HCl 1 gm/ Sodium 100 mls @ 200 mls/hr 05/22/20 23:00 05/27/20 08:50 Chloride IVPB Not Given 1100,2300 REYNALDO Vancomycin HCl 500 mg/ Sodium 100 mls @ 100 mls/hr 05/25/20 21:00 05/27/20 08:41 Chloride IVPB Not Given 0900,2100 [facility] Magnesium Oxide 400 mg 05/24/20 09:00 05/27/20 08:20 Magnesium Oxide 400 Mg Tab PO 400 mg DAILY REYNALDO Administration Pantoprazole Sodium 40 mg 05/23/20 16:00 05/26/20 16:28 Pantoprazole 40 Mg Tab PO 40 mg 1600 REYNALDO Administration Prednisone 10 mg 05/23/20 08:00 05/27/20 08:19 Prednisone 20 Mg Tab PO 10 mg QAM-WM REYNALDO Administration Saccharomyces Boulardii 250 mg 05/24/20 09:00 05/27/20 08:20 Saccharomyces Boulardii 250 Mg Cap PO 250 mg DAILY REYNALDO Administration Sodium Chloride 10 ml 05/22/20 21:00 05/27/20 08:20 Flush - Normal Saline 10 Ml Syringe IVF 10 ml Q12HR REYNALDO Administration Sodium Chloride 1 ml 05/24/20 07:41 05/25/20 09:09 Sodium Chloride 0.65% Nasal 44 Ml Bot EA NARE 1 sprays TID PRN Administration Nasal Congestion Tacrolimus 2 mg 05/22/20 21:00 05/27/20 08:20 Tacrolimus 1 Mg Cap PO 2 mg BID REYNALDO Administration - Exam General Appearance: awake alert Eye: anicteric sclera ENT: normocephalic atraumatic, moist mucosa Neck: supple, symmetric, no JVD Respiratory - other findings: fair air entry with some transmitted sound Cardiovascular: RRR Gastrointestinal: soft, non-distended, normal bowel sounds Extremities: no cyanosis, no clubbing, no edema Neurological: CN's grossly intact, no focal deficits PSYCH: A&O x 3 Nephrology Results - Labs Result Diagrams: 05/25/20 04:49 05/26/20 08:05 Lab results: WBC 7.3 thou/uL (4.8-10.8) 05/25/20 04:49 Hgb 7.9 g/dL (12.0-16.0) L 05/25/20 04:49 Hct 25.5 % (36.0-47.0) L 05/25/20 04:49 MCV 79.5 fL (78.0-98.0) 05/25/20 04:49 Plt Count 226 thou/uL (130-400) 05/25/20 04:49 Neutrophils % 77.4 % (42.0-75.0) H 05/25/20 04:49 Band Neuts % (Manual) 1 % (5-11) L 05/23/20 09:09 ESR Westergren 27 mm/hr (Less than 30) 05/22/20 11:38 ABG pH 7.40 (7.35-7.45) 05/22/20 10:45 ABG pCO2 34.4 mmHg (35.0-45.0) L 05/22/20 10:45 ABG pO2 116.2 mmHg (> 80.0) H 05/22/20 10:45 VBG pH 7.28 (7.32-7.43) L 05/22/20 09:00 VBG pCO2 45.9 mmHg (42.0-51.0) 05/22/20 09:00 VBG pO2 27.3 mmHg (35.0-45.0) L 05/22/20 09:00 Sodium 140 mmol/L (136-145) 05/26/20 08:05 Potassium 3.8 mmol/L (3.5-5.1) 05/26/20 08:05 Chloride 109 mmol/L (98-107) H 05/26/20 08:05 Carbon Dioxide 24 mmol/L (23-31) 05/26/20 08:05 BUN 9 mg/dL (9.8-20.1) L 05/26/20 08:05 Creatinine 0.77 mg/dL (0.6-1.1) 05/26/20 08:05 Glucose 114 mg/dL (80-115) 05/26/20 08:05 Lactic Acid 2.2 mmol/L (0.5-2.2) 05/22/20 12:24 Calcium 8.8 mg/dL (7.8-10.44) 05/26/20 08:05 Total Bilirubin 0.5 mg/dL (0.2-1.2) 05/22/20 09:01 AST 18 U/L (5-34) 05/22/20 09:01 ALT Less than 7 U/L (8-55) L 05/22/20 09:01 Alkaline Phosphatase 52 U/L (40-110) 05/22/20 09:01 Creatine Kinase 19 U/L (29-168) L 05/22/20 09:01 CK-MB (CK-2) 1.0 ng/mL (0-6.6) 05/22/20 09:01 Troponin I 0.038 ng/mL (< 0.028) H 05/22/20 15:30 C-Reactive Protein 0.58 mg/dL (= or < 0.5) H 05/22/20 11:38 B-Natriuretic Peptide 191.9 pg/mL (0-100) H 05/22/20 09:01 Serum Total Protein 6.2 g/dL (5.8-8.1) 05/22/20 09:01 Albumin 2.9 g/dL (3.4-4.8) L 05/23/20 09:09 Lipase 17 U/L (8-78) 05/22/20 09:01 Urine Ketones Negative mg/dL (Negative) 05/22/20 15:38 Urine Blood Negative (Negative) 05/22/20 15:38 Urine Nitrite Negative (Negative) 05/22/20 15:38 Ur Leukocyte Esterase Negative (Negative) 05/22/20 15:38 Sodium 140 mmol/L (136-145) 05/26/20 08:05 Potassium 3.8 mmol/L (3.5-5.1) 05/26/20 08:05 Chloride 109 mmol/L (98-107) H 05/26/20 08:05 Carbon Dioxide 24 mmol/L (23-31) 05/26/20 08:05 Anion Gap 11 mmol/L (10-20) 05/26/20 08:05 BUN 9 mg/dL (9.8-20.1) L 05/26/20 08:05 Creatinine 0.77 mg/dL (0.6-1.1) 05/26/20 08:05 Glucose 114 mg/dL (80-115) 05/26/20 08:05 Calcium 8.8 mg/dL (7.8-10.44) 05/26/20 08:05 Phosphorus 3.8 mg/dL (2.3-4.7) 05/23/20 09:09 Magnesium 1.8 mg/dL (1.6-2.6) 05/24/20 04:47 Albumin 2.9 g/dL (3.4-4.8) L 05/23/20 09:09 Nephrology AP PN - Plan ASSESSMENT: Status post renal transplant. Renal function has been stable. Hypomagnesemia. Repleted Positive blood culture with 1/2 bottles growing Coag negative staph. Considered contaminant Anemia: Iron deficiency +/- Chronic illness/CKD. Possible covid reinfection. Patient was treated at [facility] between Mar 2020 and apr 2020 and did subsequently had a negative covid test. She however tested positive this admission. Diabetes on Tradjenta. Acute respiratory failure with hypoxia: Recent COVID infection/pneumonia with acute respiratory failure PLAN can be discharged from Nephrology point of view Continue current doses of pred and prograf Follow up with her transplant [employer] at [facility].
--- NOTE | 2020-05-27 10:08 | DIS ---
DATE OF ADMISSION: 05/22/2020 DATE OF DISCHARGE: 05/27/2020 PRIMARY CARE PROVIDER: Whitney Finnegan DO DISPOSITION: Discharged home. FINAL DIAGNOSES: Acute on chronic respiratory failure, bacteremia, cardiomegaly, coronavirus disease 2019, diabetes mellitus type 2, history of pulmonary embolism, history of renal transplant, immune-compromised status. DISCHARGE MEDICATIONS: 1. Prednisone 10 mg p.o. b.i.d. 2. Tradjenta 5 mg p.o. daily. 3. Protonix 40 mg a day. 4. Eliquis 5 mg twice a day. 5. Tacrolimus 2 mg b.i.d. ALLERGIES: HYDROCHLOROTHIAZIDE AND PENICILLINS. DIET: Diabetic. CODE STATUS: Full. PENDING AT THE TIME OF DISCHARGE: Nothing. HOSPITAL COURSE: The patient was admitted to the hospital 05/22/2020 through the emergency department with a diagnosis of acute on chronic respiratory failure, history of COVID 19, sepsis syndrome, history of renal transplant, chronic anticoagulation, history of pulmonary embolism, diabetes mellitus type 2, cardiomegaly. Consultations during her hospital stay included Joshua Rojas, Pulmonology; Adela Ellison, Nephrology; Clyde Posada, Pulmonology. PROCEDURES: None. PERTINENT TESTS DONE DURING IN THE HOSPITAL: Chest x-ray, multifocal interstitial infiltrates consistent with COVID 19 infection. CTA of the chest; no CT evidence of pulmonary embolus, cholelithiasis. Echocardiogram; LVEF 55% to 60% suggestive of diastolic dysfunction. Remitting laboratory; white count was 16.0, hemoglobin 9.8, platelet count was 362,000. Sodium 140, potassium 3.8, CO2 of 19, BUN 8, creatinine 0.97, blood sugar 236, lactic acid 4.6. Cardiac enzymes were 0.029 and 0.030, 0.038. C-reactive protein was 0.58. DISCHARGE INSTRUCTIONS: The patient was started on IV antibiotics after cultures were obtained. The patient's anti-rejection medicines were continued. Consultation with Dr. Adela Ellison, recommended continuing Prograf and Bactrim. Dr. Rjoas saw the patient. He also recommended home O2. His pulmonary recommendations otherwise was follow cultures. The patient's central line cultures one was no growth, one was coagulase negative Staph. Dr. Posada was consulted because of her immune-compromised state. He recommended discontinue antibiotics as it was not considered a significant infection since only one of two were positive and it is a contaminated and normal things. During her hospital stay, her white count dropped down steadily to 7.3, hemoglobin stable at about 8 at the time of discharge. Chemistries were unremarkable. She is being insistent on going home for a couple of days now. Vital signs are stable without fever. She is on 3 L of O2 by nasal cannula. Home oxygen has been arranged and will be here before she leaves the hospital. She has been asked to follow up with her PCP in 3 days. Follow up with her renal transplant service per their recommendations. Job ID: [id number]
[2020-05-27] MEDS: Alogliptin 25 MG TAB PO SCH (10:41)
[2020-05-27] MEDS ORDERED: Sulfameth/Trimethoprim DS 800-160mg TAB PO SCH (21:00)
--- NOTE | 2020-05-29 01:03 | PQF ---
Dear : Chandler Feliz Date 05/29/2020 Please exercise your independent, professional judgment in responding to the clarification form. Clinical indicators are provided on the bottom of this form for your review Based on your clinical judgment, can you please specify the infectious status of this patient? Please check appropriate box(es): [ ] Sepsis due to: [ ] No Sepsis [ ] Other diagnosis please specify [ ] Unable to determine Physician Signature: Date/Time: For continuity of documentation, please document condition throughout progress notes and discharge summary. Thank You. To be completed by CDI/Coding staff for physician review: Present Clinical Indicators - Signs / Symptoms / Labs Results and Location in Medical Record [ x ] VS: BP: 69765, P: 127, RR: 30, T: 98.1 ED Provider pg.2 [ x ] Tachycardia ED Provider pg.3 [ x ] Respiratory distress H and P pg.1 [ x ] Sepsis, possibility of superimposed bacterial infection is not ruled out H and P pg.4 [ x ] WBC: 16.0H, 17.3H, 12.4H, 7.3 Laboratory [ x ] Lactic acid: 4.6H, 2.2 Laboratory [ x ] Acute respiratory failure with hypoxia: most likely due to physical deconditioning Consult pg.3 Dr. Ellison [ x ] Possible line sepsis PN 05/23 pg.1 [ x ] Bacteremia associated with intravascular line Hospitalist PN pg.4 05/25 [ x ] Positive blood culture with bottles growing Coag neg staph Hospitalist PN pg.4 05/25 [ x ] Sepsis syndrome DS pg.1 [ x ] Possible covid reinfection Nephro PN pg.5 05/26 Present Risk Factors Results and Location in Medical Record [ x ] Recent COVID Pneumonia Consult pg.2 [ x ] bacteremia DS pg.1 [ x ] Hx of renal transplant DS pg.1 Present Treatments Results and Location in Medical Record [ x ] Pulmonary Consult 05/22 [ x ] Infectious Consult Dr. Posada [ x ] IV Fluids MAR [ x ] IV Antibiotics MAR [ x ] Blood culture Microbiology [ x ] WBC monitoring Laboratory [facility] Glosser Signature: Edmundo Wang Phone #: ext [phone] Date 05/29/2020 SHAMIKA
== END 2020-05-27 11:40 | disposition home or self-care (01) | DRG 189 ==
LOC: EDBD 08:42 → ERS 08:42 → ERHOLD 11:24 → 2SE 18:28
PROVIDERS: ADMIT Internal Medicine; ATTEND Internal Medicine
PROC: 06HY33Z Insertion of Infusion Device into Lower Vein, Percutaneous Approach (ICD-10-PCS; principal; 2020-05-22)
DX: J96.21 Acute and chronic respiratory failure with hypoxia (principal); Z94.0 Kidney transplant status; R78.81 Bacteremia; Z23 Encounter for immunization; B94.8 Sequelae of other specified infectious and parasitic diseases; E11.22 Type 2 diabetes mellitus with diabetic chronic kidney disease; I51.7 Cardiomegaly; I12.9 Hypertensive chronic kidney disease with stage 1 through stage 4 chronic kidney disease, or unspecified chronic kidney disease; Z90.710 Acquired absence of both cervix and uterus; Z88.0 Allergy status to penicillin; Z88.8 Allergy status to other drugs, medicaments and biological substances; Z79.01 Long term (current) use of anticoagulants; Z79.52 Long term (current) use of systemic steroids; Z79.899 Other long term (current) drug therapy; Z93.0 Tracheostomy status; Z86.711 Personal history of pulmonary embolism; E83.42 Hypomagnesemia; E88.09 Other disorders of plasma-protein metabolism, not elsewhere classified; K21.9 Gastro-esophageal reflux disease without esophagitis; D50.9 Iron deficiency anemia, unspecified
CPT/HCPCS: 0240U; 36415; 36556; 36600; 51701; 71045; 71275; 80048; 80053; 80069; 80202; 81003; 82550; 82553; 82728; 82805; 83540; 83550; 83605; 83690; 83735; 83880; 84145; 84484; 85025; 85379; 85652; 86140; 87040; 87149; 93005; 93306; 94640; 94644; 94660; 96365; 96366; 96367; 96375; J0692; J1100; J1940; J2060; J2916; J3370; J3475; J3490; J7507; J7512; J7611; J7620; Q9967